=== PATIENT | female | born 1960 | race Caucasian/White ===

== ENCOUNTER → 2016-09-22 | Outpatient (CLI) | payer OTHER ==
[~2016-09-22] VITALS: Ht 162.6 cm; Wt 100.1 kg
[~2016-09-22] MED LIST: ADVAIR 250-501 EACH INH; HYDROCHLOROTH12.5 M2 PO; HYDROCODONE-AP1 EAC6 PO; IBUPROFEN 200200 M1 PO; LEVOTHYROXIN0.125 M1 PO; LISINOPRIL20 MG PO; MEDROLDOSEPACK PO; MOBIC15 MG PO; NEURONTIN 300300 M1 PO; OXYCODONE-ACET1 EACH PO; PERCOCET PO; PROAIR HFA8.5 GM INH; TIZANIDINE HCL4 M1 PO; ZANAFLEX4 MG PO
--- NOTE | ~2016-09-22 | HPC ---
[facility] [place] [address] PAIN MANAGEMENT CONSULTATION Name: EDGARD BECERRA Room #: REG [facility]#: [id number] Admission: 09/22/16 Attend Phys: Andre Parker MD Discharge: Date of : 56 Report #: [id number] THIS REPORT FOR: //name// CC: Andre Stratton MD DATE OF SERVICE: 09/22/2016 FOLLOWUP COMPLAINT: "My surgeon did not think the pain is coming from my back. He thinks it might be in my hip". FOLLOWUP HISTORY: The patient is a 56-year-old female who has been followed in the pain clinic because of pain and discomfort involving her left hip with radiation down into the legs. The patient has a broad-based disk bulge at L4-L5 with moderate facet hypertrophy. She returns today indicating that she had seen her surgeon. He does not feel that the problem is secondary to her back. He feels it might be a problem with her hip. She has returned to the pain clinic for evaluation. PHYSICAL EXAMINATION: Blood pressure 157/64, pulse 91, respiratory rate 18, room air saturations 100%. Height 5 feet 4 inches, weight 100 kilograms. BMI is 37.0. Palpation of the left greater trochanteric area reproduces pain and discomfort. The patient feels that there may be some pain, which is radiating down into her leg in the medial aspect of her leg. She does walk with an antalgic gait. IMPRESSION: 1. Left greater trochanteric bursitis. 2. Chronic low back pain. 3. Migraine headaches. 4. Hypertension. 5. Restless leg syndrome. 6. Acne rosacea. RECOMMENDATIONS: We discussed the risks and benefits of an injection in the left greater trochanteric area for bursitis. Possible complications were discussed. The patient elects to proceed. PROCEDURE NOTE: The patient was placed in the right lateral decubitus position. The left greater trochanteric area was sterilely prepped with a chlorhexidine solution and allowed to dry. Palpation in the area of the left greater trochanter was performed. A skin wheal using 1% lidocaine was injected. A 20-gauge spinal needle was then advanced into the area of the left greater trochanteric area. The patient states that this was quite uncomfortable and reproduces a portion of her pain with some pain radiating down into her leg. [address] [address] PAIN MANAGEMENT CONSULTATION Name: BECERRAEDGARD [facility] [id number] Admission: 09/22/16 Attend Phys: Andre Parker MD Discharge: Date of : 56 Report #: [id number] total of 10 mL of 0.5% bupivacaine and 80 mg Depo-Medrol was injected. The patient tolerated the procedure well. There were no complications. She will follow up in the future as needed. Her pain decreased from 6 to 0 at the time of discharge. She will follow up in the future as needed. We would like to thank you for letting us participate in her care. We hope she continues to improve. <ELECTRONICALLY SIGNED> By: Andre Parker MD 09/24/16 0812 1332 1811 Andre Parker MD /nt
[2016-09-22 08:14] VITALS: BP 157/64
== END ==
LOC: PAIN 07:00
DX: M70.62 Trochanteric bursitis, left hip (principal); G43.909 Migraine, unspecified, not intractable, without status migrainosus; I10 Essential (primary) hypertension; G25.81 Restless legs syndrome; M19.91 Primary osteoarthritis, unspecified site

== ENCOUNTER → 2016-10-27 | Outpatient (CLI) | payer OTHER ==
[~2016-10-27] VITALS: Ht 162.6 cm; Wt 99.5 kg
[~2016-10-27] MED LIST changes: +HYDROCODONE-AP1 EA11 PO
--- NOTE | ~2016-10-27 | HPC ---
[facility] [place] [address] PAIN MANAGEMENT CONSULTATION Name: MARIAMEDGARD L Room #: REG [facility]#: [id number] Admission: 10/27/16 Attend Phys: Andre Parker MD Discharge: Date of : 56 Report #: [id number] THIS REPORT FOR: //name// CC: Andre Stratton MD DATE OF SERVICE: 10/27/2016 DATE OF SERVICE: 10/27/2016 FOLLOWUP HISTORY: The patient is a 56-year-old female, who has been seen in the pain clinic because of pain and discomfort involving her back and left leg. She underwent an injection in the left greater trochanteric area. She noted improvement in this area. She continues to have pain and discomfort involving both hips at this juncture. She rates it as a 6/10, but she is limited by the pain. She is unable to lie on the affected side. She notes that it is exacerbated by working. 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 PHYSICAL EXAMINATION: Blood pressure 138/74, pulse 78, respiratory rate 20, room air saturation 99%. Height 162 cm. Weight 99 kilograms. BMI is 37. Palpation in the area of the left greater trochanteric area does cause some increased pain and discomfort. Palpation in the area of the left greater trochanteric area does reproduce some pain and discomfort. The patient received at least 50% improvement after last the injection. Walks with somewhat antalgic gait. IMPRESSION: 1. Left greater trochanteric bursitis improved after injection. Rotation of the left leg does cause some increased pain and discomfort. The patient is having some pain in the area of the groin. We will consider left femoral/hip injection at the next visit. 2. Chronic low back pain. 3. Chronic migraine headaches. 4. Hypertension. 5. Restless leg syndrome. 6. Acne rosacea. RECOMMENDATION: We will have the patient try a Medrol Dosepak and noted efficacy. We will consider injecting the hip area to note whether or not the hip is the pathology that is causing her pain. Her orthopedic surgeon does not feel that this pain is secondary to the back area, but may be attributed to the hip. We will consider x-ray of the hip. We would like to thank you for letting us participate in her care. We hope [place] [address] PAIN MANAGEMENT CONSULTATION Name: EDGARD BECERRA [facility] [id number] Admission: 10/27/16 Attend Phys: Andre Parker MD Discharge: Date of : 56 Report #: [id number] When the patient returns from precertification, we will consider a hip injection under fluoroscopy. <ELECTRONICALLY SIGNED> By: Andre Parker MD 11/02/16 0824 1433 2230 Andre Parker MD /akiko
[2016-10-27 08:58] VITALS: BP 138/74
== END ==
LOC: PAIN 06:56
DX: M70.62 Trochanteric bursitis, left hip (principal); G89.29 Other chronic pain; G43.909 Migraine, unspecified, not intractable, without status migrainosus; I10 Essential (primary) hypertension

== ENCOUNTER → 2016-11-24 | Outpatient (CLI) | payer OTHER ==
[~2016-11-24] VITALS: Ht 162.6 cm; Wt 99.6 kg
--- NOTE | ~2016-11-24 | HPC ---
[facility] [address] PAIN MANAGEMENT CONSULTATION Name: EDGARD BECERRA Gurvinder Room #: REG [facility]#: [id number] Admission: 11/24/16 Attend Phys: Andre Parker MD Discharge: Date of : 56 Report #: [id number] THIS REPORT FOR: //name// CC: Andre Stratton MD DATE OF SERVICE: 11/24/2016 FOLLOWUP COMPLAINT: The patient is a 56-year-old female who has been followed in the pain clinic because of pain involving the left trochanter and is experiencing pain in the right hip area as well. She has seen her surgeon. He feels that it is not a lumbar problem and it is most likely secondary to hip bursitis. She has returned today for treatment of the left and right hip. She rates her pain as an 8-9. 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 She did get significant improvement after the last injection. She would like to proceed with treatment today. PHYSICAL EXAMINATION: Blood pressure is 158/86, pulse is 80, respiratory rate 20, room air saturation 98%. Height 5 feet 4 inches, weight 99 kilograms. BMI is 37.7. The patient has pain and discomfort in the left greater trochanteric area, which is consistent with trochanteric bursitis. The right side indicates right sided bursitis as well. The patient would like to proceed with treatment of the pain, which caused her to walk in an antalgic fashion. IMPRESSION: 1. Left and right bursitis. Left bursitis improved after injection in the past. 2. Chronic low back pain. 3. Chronic migraine headaches. 4. Hypertension. 5. Restless legs syndrome. 6. Acne rosacea. RECOMMENDATION: We discussed treatment options with the patient. Risks and benefits of a trochanteric injection were discussed. The patient elects to proceed. PROCEDURE NOTE: The patient was placed in the right lateral decubitus position. The right hip/trochanteric area was sterilely prepped with a chlorhexidine solution and allowed to dry. A 25-gauge needle was then advanced into the trochanteric bursa. A total of 10 mL 0.5% bupivacaine and 80 mg Depo-Medrol was injected. The patient tolerated the procedure well. She then was placed in the left lateral decubitus position. The right trochanteric area was palpated and the trochanteric bursa was identified using a 25-gauge needle. The patient [place] [id number] PAIN MANAGEMENT CONSULTATION Name: MARIAMEDGARD Room #: REG [facility] Bernardo#: [id number] Admission: 11/24/16 Attend Phys: Andre Parker MD Discharge: Date of : 56 Report #: [id number] indicated that this did reproduce her pain. A total of 10 mL of 0.5% bupivacaine and 80 mg Depo-Medrol was injected. The patient remained in the pain clinic for an appropriate amount of time. Her hip pain decreased from 9 to 2 at the time of discharge. She will continue with hydrocodone 7.5 mg 1 p.o. t.i.d. p.r.n. for pain relief. We would like to thank you for letting us participate in her care. We hope she continues to improve. <ELECTRONICALLY SIGNED> By: Andre Parker MD 11/25/16 0820 1236 1948 Andre Parker MD /nt
[2016-11-24 08:45] VITALS: BP 158/86
== END ==
LOC: PAIN 06:37
DX: M71.552 Other bursitis, not elsewhere classified, left hip (principal); M71.551 Other bursitis, not elsewhere classified, right hip; G43.809 Other migraine, not intractable, without status migrainosus; I10 Essential (primary) hypertension; G25.81 Restless legs syndrome; L71.8 Other rosacea

== ENCOUNTER → 2016-12-22 | Outpatient (CLI) | payer OTHER ==
[~2016-12-22] VITALS: Ht 162.6 cm; Wt 98.0 kg
[2016-12-22 08:30] VITALS: BP 144/81
== END | disposition home or self-care (01) ==
LOC: PAIN 06:35 → RAD 07:19
DX: M25.552 Pain in left hip (principal); G89.29 Other chronic pain; M71.552 Other bursitis, not elsewhere classified, left hip; M71.551 Other bursitis, not elsewhere classified, right hip; G43.909 Migraine, unspecified, not intractable, without status migrainosus; I10 Essential (primary) hypertension; G25.81 Restless legs syndrome; L71.8 Other rosacea; Z88.8 Allergy status to other drugs, medicaments and biological substances; Z79.899 Other long term (current) drug therapy

== ENCOUNTER → 2017-01-21 | Outpatient (CLI) | payer OTHER ==
[~2017-01-21] VITALS: Ht 162.6 cm; Wt 100.4 kg
[~2017-01-21] MED LIST changes: +HYDROCODON-ACE1 EAC5 PO
--- NOTE | ~2017-01-21 | HPC ---
[facility] [place] [address] PAIN MANAGEMENT CONSULTATION Name: EDGARD BECERRA Room #: REG [facility]#: [id number] Admission: 01/21/17 Attend Phys: Andre Parker MD Discharge: Date of : 56 Report #: [id number] THIS REPORT FOR: //name// CC: Andre Stratton MD DATE OF SERVICE: 01/21/2017 FOLLOWUP COMPLAINT: The pain is in my ITB. FOLLOWUP HISTORY: The patient is a 56-year-old female who has been seen in the pain clinic because of chronic pain involving her greater trochanteric area as well as low back pain. She states that she has been going to the physical therapist. It has been determined that it is her iliotibial band that is a problem at this juncture for most of her pain involving the lateral portion of her thigh. She has been undergoing treatment. She feels that things are improving, but that the pain is really bad when the therapy is provided. PHYSICAL EXAMINATION: Blood pressure 151/81, pulse 63, respiratory rate 20, room air saturation 100%, height 5 feet 4 inches, weight 221 pounds, and BMI is 38. The patient has pain and discomfort in the area of her left greater trochanteric area/iliotibial band area. She would like to have her medications renewed. She still walks with a slight antalgic gait when the pain is there. IMPRESSION: 1. pain in the iliotibial band area. 2. History of left greater trochanteric bursitis. 3. Chronic low back pain. 4. Migraine headaches. 5. Hypertension. 6. Restless leg syndrome. 7. Acne rosacea. RECOMMENDATIONS: We discussed treatment options with the patient. Risks and benefits of medications were reviewed. The patient would like to continue with hydrocodone, gabapentin, Meloxicam, and tizanidine. She feels that these medications all contribute to improving her pain level and lets her engage in activities, she would not be able to without their use. She will call us if she has any problems with her medications. We would like to thank you for letting us to participate in her care. We hope she continues to improve. By: 1615 1725 Andre Parker MD /nt
[2017-01-21 09:24] VITALS: BP 151/81
== END | disposition home or self-care (01) ==
LOC: PAIN 07:14
DX: M79.659 Pain in unspecified thigh (principal); M70.62 Trochanteric bursitis, left hip; M54.5 Low back pain; G43.909 Migraine, unspecified, not intractable, without status migrainosus; I10 Essential (primary) hypertension; G25.81 Restless legs syndrome; L70.9 Acne, unspecified; Z68.38 Body mass index [BMI] 38.0-38.9, adult

== ENCOUNTER → 2017-02-23 | Outpatient (CLI) | payer OTHER ==
[~2017-02-23] VITALS: Ht 162.6 cm; Wt 100.2 kg
[~2017-02-23] MED LIST changes: +tumeric
--- NOTE | ~2017-02-23 | HPC ---
[facility] [place] [address] PAIN MANAGEMENT CONSULTATION Name: EDGARD BECERRA [facility] [id number] Admission: 02/23/17 Attend Phys: Andre Parker MD Discharge: Date of : 56 Report #: [id number] THIS REPORT FOR: //name// CC: Andre Stratton MD DATE OF SERVICE: 02/23/2017 FOLLOWUP COMPLAINT: Still having some pain in the area of the iliotibial band. I was massaged and she gets better, but still is painful. FOLLOWUP HISTORY: The patient is a 57-year-old female who has been seen in the pain clinic because of pain involving the iliotibial band area. She has undergone physical therapy. She had some difficulty getting to the class secondary to having to work. She feels that massaging of the iliotibial band area has been helpful but continues to have pain and discomfort. She feels that her medications are helpful. Hydrocodone 10/325 and meloxicam continue to be beneficial. Tizanidine has been helpful as well. She would like to have her medications renewed. She would also like to consider massage therapy. She rates her pain as a 6-10 to date. Walking and other activities can worsen it. It improves when she lies down and performed stretching exercises which she does. PHYSICAL EXAMINATION: Blood pressure is 159/99, pulse 75, respiratory rate 20, room air O2 saturation is 100%. Height 5 feet 4 inches, weight 220 pounds, BMI is 37. The patient has not fallen since we saw her last. She continues to have pain and discomfort in the area of iliotibial band. Palpation in this area does indicate tender points and some perception of nodules. This is on the left side. IMPRESSION: 1. Pain in the left iliotibial band area, helped with current medication regimen. 2. History of left greater trochanter bursitis. 3. Chronic low back pain. 4. Migraine headaches. 5. Hypertension. 6. Restless legs syndrome. 7. Acne rosacea. RECOMMENDATIONS: We will continue with the patient's use of meloxicam, tizanidine, and hydrocodone p.r.n. for pain. She feels that her medications have been helpful. They enable her to continue to remain gainfully employed. She has not had any complications with their use. Keeps her medications in a controlled environment. [address] [address] PAIN MANAGEMENT CONSULTATION Name: EDGARD BECERRA [facility] [id number] Admission: 02/23/17 Attend Phys: Andre Parker MD Discharge: Date of : 56 Report #: [id number] We would like to thank you for letting us participate in her care. We hope she continues to improve. <ELECTRONICALLY SIGNED> By: Andre Parker MD 02/25/17 0827 1347 0402 Andre Parker MD /akiko
[2017-02-23 12:55] VITALS: BP 159/99
== END ==
LOC: PAIN 07:07
DX: I10 Essential (primary) hypertension (principal); L71.9 Rosacea, unspecified; M54.5 Low back pain; R51 Headache

== ENCOUNTER → 2017-05-25 | Outpatient (CLI) | payer OTHER ==
[~2017-05-25] VITALS: Ht 162.6 cm; Wt 94.3 kg
[~2017-05-25] MED LIST changes: +METHYLPREDNISOLO4 M1 PO
--- NOTE | ~2017-05-25 | HPC ---
[facility] [place] [address] [address] [place] [address] PAIN MANAGEMENT CONSULTATION Name: MARIAMEDGARD Gurvinder Room #: REG [facility]#: [id number] Admission: 05/25/17 Attend Phys: Andre Parker MD Discharge: Date of : 56 Report #: [id number] THIS REPORT FOR: //name// CC: Andre Stratton MD DATE OF SERVICE: 05/25/2017 FOLLOWUP COMPLAINT: "My father has cancer and is in hospice." FOLLOWUP HISTORY: The patient is a 57-year-old female who has been followed in the pain clinic because of chronic pain involving her left leg. She rates her pain as a 4/10. She notes that prolonged standing can exacerbate her discomfort. She is also having some pain and discomfort and tingling in her fingers. The right fingers are involved. She notes that because of her father's condition, pain and discomfort increased at this juncture. PHYSICAL EXAMINATION: Blood pressure 129/60, pulse 70, respiratory rate 16, room air saturation is 96%. Height 5 feet 4 inches, weight 208 pounds, BMI is 35.7. The patient has pain and discomfort with walking and other activities. She is experiencing some pain in her hand numbness and tingling. This may well be carpal tunnel in nature. We will consider injecting this area with local anesthetic and steroid in the future if her pain continues to be problematic. IMPRESSION: 1. Pain in the left leg near the iliotibial band, continues to be helped with exercise and medications. 2. History of greater trochanteric bursitis. 3. Chronic history of low back pain. 4. History of migraine headaches. 5. Hypertension. 6. Restless leg syndrome. 7. Acne rosacea. 8. Possible involvement of her right hand with carpal tunnel symptomatology. RECOMMENDATIONS: We will continue with her current medical regimen. A script for her medications of hydrocodone 10/325 one p.o. q 6 hours, and Medrol and Meloxicam have been written. The patient will also continue with gabapentin 300 mg 1 in the morning, 1 midday and 2 at nighttime, tizanidine 4 mg daily x 2 if needed. We would like to thank you for letting us participate in her care. [place] [id number] PAIN MANAGEMENT CONSULTATION Name: EDGARD BECERRA [facility] [id number] Admission: 05/25/17 Attend Phys: Andre Parker MD Discharge: Date of : 56 Report #: [id number] Hopefully, her father continues to have and remained comfortable while in hospice care. <ELECTRONICALLY SIGNED> By: Andre Parker MD 06/02/17 0945 1319 1836 Andre Parker MD /PMT
[2017-05-25 08:14] VITALS: BP 129/60
== END ==
LOC: PAIN 05-20 15:07
DX: G25.81 Restless legs syndrome (principal); L71.9 Rosacea, unspecified; I10 Essential (primary) hypertension

== ENCOUNTER → 2017-06-22 | Outpatient (CLI) | payer OTHER ==
[~2017-06-22] VITALS: Ht 162.6 cm; Wt 93.3 kg
[~2017-06-22] MED LIST changes: +UNICOMPLEX M TA1 TA1 PO
--- NOTE | ~2017-06-22 | HPC ---
[facility] [address] [address] PAIN MANAGEMENT CONSULTATION Name: MARIAMEDGARD Gurvinder [facility] [id number] Admission: 06/22/17 Attend Phys: Andre Parker MD Discharge: Date of : 56 Report #: [id number] THIS REPORT FOR: //name// CC: Andre Stratton MD FOLLOWUP COMPLAINT: "My father the day after I saw you in the clinic." FOLLOWUP HISTORY: The patient is a 57-year-old female who has been seen in the hospital because of chronic back and leg pain. She was concerned at the last visit her father was in very poor condition. He had been followed by hospice. The patient states that the day after we saw her on her last visit, her father . They have had his ceremony. She continues to have pain and discomfort which is problematic. She noted some pain in her right side. She has followed up with her primary physician. An x-ray showed some calcified area. She cannot remember exactly where this was located. She is having pain and discomfort involving the right lower quadrant, right upper quadrant. This is in the abdominal area. States that it does not change with eating or with food. She thought maybe it was her gallbladder, but her gallbladder has been removed in the past. She is to undergo SONO ultrasound of the area in the near future. She has had in the past problems with diverticulosis. Coughing does not change the character of that pain. ALLERGIES: COMPAZINE, MORPHINE. CURRENT MEDICATIONS: Zanaflex 4 mg daily, Mobic 15 mg, hydrocodone 10/325 q.6 hours p.r.n., gabapentin 300 mg t.i.d., Medrol Dosepak p.r.n., hydrochlorothiazide 12.5 mg, lisinopril 20 mg, Advair 250/50 ProAir 1 puff b.i.d. as needed, Synthroid 0.125 mg. PHYSICAL EXAMINATION: VITAL SIGNS: Blood pressure 129/84, pulse 69, respiratory rate 18, room air saturation 97%, height 5 feet 4 inches, weight 205 pounds, BMI 35. HEENT: Eyes, nonicteric. Eye muscles intact. Head is atraumatic. NECK: No JVD. Good range of motion. The patient does have a cough and some upper respiratory symptoms. When asked to cough, the patient is able to cough. This does not reproduce the pain and discomfort which she is feeling in the right upper quadrant area on the right with the patient lying in the left lateral decubitus position, we were able to palpate an area approximately 2 inches below the rib cage in the area of the transverse colon. Palpation in this area does reproduce the patient's discomfort. Palpation of the ribcage and costal area does not reproduce pain or discomfort. Coughing does not reproduce the discomfort. [address] [address] PAIN MANAGEMENT CONSULTATION Name: BECERRAEDGARD Room #: REG [facility] Bernardo#: [id number] Admission: 06/22/17 Attend Phys: Andre Parker MD Discharge: Date of : 56 Report #: [id number] IMPRESSION: 1. Right upper quadrant pain and discomfort which waxes and wanes and is tender to palpation. 2. History of greater trochanteric bursitis. The patient continues with exercises. She took her Medrol Dosepak as encouraged by her physical therapist that she continues to increase her level of activity. 3. Chronic history of low back pain. 4. History of migraine headaches. 5. Hypertension. 6. Restless legs syndrome. 7. Acne rosacea. 8. History of right hand pain with carpal tunnel symptomatology. RECOMMENDATIONS: We discussed treatment options with the patient. At this juncture, her findings are that of pain and discomfort to deep palpation in the right upper abdominal area. I really could not appreciate ____ or hernia. The patient is going to undergo ultrasound for more definitive information. She states that she was told that there was a calcified area in the right upper quadrant area. I am not exactly sure what this would be. I do not think it is from her previous gallbladder or stone left in this area. May have to do with diverticulitis, but the patient is not symptomatic for this infection. Usually oftentimes more diverticula are noticed on the left descending colon area. A script for Medrol Dosepak and hydrocodone were written. The patient has script for meloxicam. Does not seem like it is a GI problem from use of nonsteroidal anti-inflammatory medication, but the patient's will look into that as a possible cause. We would like to thank you for letting us participate in her care. We hope she continues to improve. <ELECTRONICALLY SIGNED> By: Andre Parker MD 07/15/17 1332 1322 2219 Andre Parker MD /NADIA
[2017-06-22 09:33] VITALS: BP 129/84
== END ==
LOC: PAIN 06:54
DX: G89.29 Other chronic pain (principal); G43.909 Migraine, unspecified, not intractable, without status migrainosus; M79.604 Pain in right leg; R10.11 Right upper quadrant pain; R00.2 Palpitations; I10 Essential (primary) hypertension; G25.81 Restless legs syndrome; L71.8 Other rosacea

== ENCOUNTER → 2017-07-22 | Outpatient (CLI) | payer OTHER ==
[~2017-07-22] VITALS: Ht 162.6 cm; Wt 94.2 kg
--- NOTE | ~2017-07-22 | HPC ---
[facility] [place] [address] PAIN MANAGEMENT CONSULTATION Name: EDGARD BECERRA Gurvinder Room #: [facility] [id number] Admission: 07/22/17 Attend Phys: Andre Parker MD Discharge: Date of : 56 Report #: [id number] THIS REPORT FOR: //name// CC: Andre Stratton MD DATE OF SERVICE: 07/22/2017 FOLLOWUP COMPLAINT: "I had the flu and I am getting better. FOLLOWUP HISTORY: The patient is a 57-year-old female who has been followed in the pain clinic because of chronic pain involving her back and her legs. In the interim, she has had an episode of flu. This has been pretty prevalent in these last few days. She noticed that she had pain and discomfort in the right upper quadrant area. She has undergone a number of tests as well as some ultrasound. Overall, she feels that pain probably was most likely secondary to her viral infection from the flu that has improved. She is getting along a little better at this juncture secondary to her father dying. She has returned to work. She feels that her medications continue to be helpful. She rates her pain as a 6/10 at this juncture. ALLERGIES: COMPAZINE, MORPHINE. CURRENT MEDICATIONS: Zanaflex 4 mg p.o. daily, Mobic 15 mg, hydrocodone 10/325 every 6 hours p.r.n., gabapentin 300 mg t.i.d. The patient has used a Medrol Dosepak in the past, hydrochlorothiazide 12.5 mg, lisinopril 20 mg, Advair 250/50, ProAir 1 puff b.i.d. as needed, Synthroid 0.125 mg. PAIN CLINIC ASSESSMENT 1. History of osteoarthritis in the right lower extremity. 2. History of rheumatoid arthritis not applicable. 3. Height 5 feet 4 inches, weight 207 pounds, BMI is 35. 4. Vital signs: Blood pressure 138/89, pulse 65, respiratory rate 16, room air saturation 97%. 5. Pain intensity 11/20. 6. Fall risk. The patient has not fallen in the last 3 months. She does not need any assistance with walking, is not suffering from dizziness. 7. The patient is not on any blood thinner. 8. History of hypertension. The patient is being appropriately treated for her hypertension. 9. Opioid therapy greater than 6 weeks. The patient has signed a contract on 06/04/2016. RISK ASSESSMENT TOOL 1. [place] [address] PAIN MANAGEMENT CONSULTATION Name: EDGARD BECERRA Room #: REG [facility]#: [id number] Admission: 07/22/17 Attend Phys: Andre Parker MD Discharge: Date of : 56 Report #: [id number] 2. Functional assessment tool in regards to mood, work, sleep, robyn. 3. Recreational drugs. The patient denies use of recreational drugs, or tobacco. The patient has never smoked cigarettes. 4. Alcohol patient drinks alcoholic beverages infrequently. PHYSICAL EXAMINATION: GENERAL: The patient is a well-developed white female in no apparent distress today. Appears stated age, alert and oriented x 3 with fluent speech and affect is appropriate. HEAD, EARS, EYES, NOSE AND THROAT: Atraumatic. Hearing is good. Extraocular eye muscles intact. No nasal complaints. Moist buccal membranes. No adenopathy or JVD. LUNGS: Clear to auscultation. ABDOMEN: The patient states that her abdomen is nontender at this juncture. EXTREMITIES: Lower extremities, continues to have some pain and discomfort in the legs bilaterally. Has some discomfort in the right hand and right shoulders. IMPRESSION: 1. Right upper quadrant pain, which improved after flu-like symptoms. 2. 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 3. Chronic low back pain. 4. History of migraine headaches. 5. Hypertension. 6. Restless legs syndrome. 7. Acne rosacea. 8. Right arm/hand pain with carpal tunnel symptomatology. RECOMMENDATIONS: We discussed treatment options with the patient. Risks and benefits of her current therapy were discussed. We will continue with her current use of hydrocodone 10 mg q.i.d. She will continue with the muscle relaxant. She will call us if she has any problems with her medication. Overall, she feels like she is getting better from the of her father. She will continue with her therapy and call us if she has any concerns. <ELECTRONICALLY SIGNED> By: Andre Parker MD 08/24/17 1421 0918 1655 Andre Parker MD /NADIA
[2017-07-22 08:03] VITALS: BP 138/89
== END ==
LOC: PAIN 06:56
DX: G89.29 Other chronic pain (principal); R10.11 Right upper quadrant pain; M54.5 Low back pain; G43.909 Migraine, unspecified, not intractable, without status migrainosus; I10 Essential (primary) hypertension; G25.81 Restless legs syndrome; L71.9 Rosacea, unspecified; Z88.5 Allergy status to narcotic agent; Z88.8 Allergy status to other drugs, medicaments and biological substances

== ENCOUNTER → 2017-08-19 | Outpatient (CLI) | payer OTHER ==
[~2017-08-19] VITALS: Ht 160 cm; Wt 92.2 kg
[~2017-08-19] MED LIST changes: -UNICOMPLEX M TA1 TA1 PO
--- NOTE | ~2017-08-19 | HPC ---
[facility] [address] [place] [address] PAIN MANAGEMENT CONSULTATION Name: EDGARD BECERRA Room #: REG [facility].#: [id number] Admission: 08/19/17 Attend Phys: Andre Parker MD Discharge: Date of : 56 Report #: [id number] THIS REPORT FOR: //name// CC: Andre Stratton MD DATE OF SERVICE: 08/19/2017 FOLLOWUP COMPLAINT: Here for medication refill. My mother is still in the little better. FOLLOWUP HISTORY: The patient is a 57-year-old female who has been seen in the pain clinic because of chronic pain involving her right upper quadrant as well as pain down in her leg in the area of the iliotibial tract. She also has noticed some pain and discomfort in her right hand. She rates her pain overall as a 4/10. Notes that the pain is exacerbated by walking, lifting, sitting, standing as well as with changes in the weather. She has used the TENS unit as well and found it sometimes helpful. She feels that her current medication of meloxicam, tizanidine, gabapentin and hydrocodone continue to be helpful. She continues to work. Notes that without her medications her pain can be more problematic. She is feeling a little better. Her father around [place] time. Her mother is beginning to become a bit more independent. She feels overall that things are slowly hearing for a new normal. Again, she feels that her medications are helpful. She would like to continue them. She keeps them in a guarded area. She has returned for renewal of her medications. ALLERGIES: COMPAZINE, MORPHINE. MEDICATIONS: Zanaflex 4 mg p.o. daily, Mobic 15 mg, hydrocodone 10/325 q. 6 hours p.r.n., gabapentin 300 mg p.o. t.i.d., the patient continues to use hydrochlorothiazide 12.5 mg, lisinopril 20 mg, Advair 250/50, ProAir 1 puff b.i.d. as needed and Synthroid 0.25 mg. PAIN CLINIC ASSESSMENT: 1. History of osteoarthritis of the right lower extremity 2. History of rheumatoid arthritis, not applicable: 3. Height 5 feet 4 inches, weight 203 pounds, BMI is 36. 4. Vital signs: Blood pressure 134/80, pulse 75, respiratory rate 14, room air saturation 95%. 5. Pain intensity 10. 6. Fall risk. The patient has not fallen in the last 3 months. 7. The patient is not on a blood thinner. 8. History of hypertension and the patient [place] [address] PAIN MANAGEMENT CONSULTATION Name: EDGARD BECERRA Room #: REG [facility] Bernardo#: [id number] Admission: 08/19/17 Attend Phys: Andre Parker MD Discharge: Date of : 56 Report #: [id number] 9. Opioid therapy. The patient has signed a contract with our pain clinic and only gets her medication from one source. 10. Risk tool for opioid low at 0/3. 11. Functional assessment tool 37/70. 12. Recreational drug use, never used recreational drugs. 13. Tobacco, never used tobacco. 14. Alcohol. Denies use of alcohol except on rare occasions: The patient is a well-developed white female, in no apparent distress today. Appears her stated age. She is alert and oriented x 3. Speech is fluent. Affect is appropriate. She seems less emotional within the last visit. There has been a little bit more time since her father PHYSICAL EXAMINATION: HEENT: The patient is normocephalic, atraumatic. Hearing is within normal limits. Extraocular eye muscles intact. Nasal, there were no nasal complaints. Moist buccal membranes. NECK: No adenopathy or JVD. LUNGS: Clear to auscultation. ABDOMEN: Nontender. EXTREMITIES: Lower extremities continue to have some pain and discomfort in the legs bilaterally. The patient has had some discomfort in her right hand and right shoulders. IMPRESSION: 1. Right upper quadrant pain, which improved after resolution of her flu-like symptoms. 2. History of left lower pain down into the iliotibial areas. There is also some discomfort in the area of the greater trochanteric area. 3. Chronic low back pain. 4. History of migraine headaches. 5. Hypertension. 6. Restless leg syndrome. 7. Acne rosacea. 8. Right arm pain with carpal tunnel symptomatology. RECOMMENDATIONS: We will continue with the patient's current use of her medications. She states that she has taken the medication as prescribed. She is aware of the problems with opioids in [facility]. She states that she is keeping her medications in a guarded area. She takes her medications as prescribed. She is not having any medications problems. No significant problems with constipation. No problems with clear thinking. We will renew her medications for tizanidine 4 mg b.i.d., Meloxicam 15 mg daily, [facility] [address] [place] [address] PAIN MANAGEMENT CONSULTATION Name: EDGARD BECERRA Room #: [facility] Chang#: [id number] Admission: 08/19/17 Attend Phys: Andre Parker MD Discharge: Date of : 56 Report #: [id number] gabapentin 300 mg t.i.d. and hydrocodone We would like to thank you for letting us participate in her care. We hope she continues to improve. <ELECTRONICALLY SIGNED> By: Andre Parker MD 09/09/17 0811 1551 1758 Andre Parker MD /PMT
[2017-08-19 07:55] VITALS: BP 134/80
== END ==
LOC: PAIN 06:59
DX: G89.29 Other chronic pain (principal); M54.5 Low back pain; I10 Essential (primary) hypertension; M79.604 Pain in right leg; M79.641 Pain in right hand; F11.90 Opioid use, unspecified, uncomplicated

== ENCOUNTER → 2017-09-16 | Outpatient (CLI) | payer OTHER ==
[~2017-09-16] VITALS: Ht 160 cm; Wt 94.4 kg
--- NOTE | ~2017-09-16 | HPC ---
[facility] [place] [address] [place] [address] PAIN MANAGEMENT CONSULTATION Name: EDGARD BECERRA Gurvinder Room #: REG [facility].#: [id number] Admission: 09/16/17 Attend Phys: Andre Parker MD Discharge: Date of : 56 Report #: [id number] THIS REPORT FOR: //name// CC: Andre Stratton MD DATE OF SERVICE: 09/16/2017 FOLLOWUP COMPLAINT: "Things are going reasonably well and I have come to renew my medication." FOLLOWUP HISTORY: The patient is a 57-year-old female, who has been seen in the Pain Clinic because of chronic pain involving her lower extremities as well as some right shoulder and hip pain. She rates her pain as 10/10 at this juncture. She has noted some changes in the weather that has had some impact on her discomfort. Overall, she is having pain and discomfort in the right shoulder area. Also, she has some pain in her right hip and down into her legs. She has had some pain on the lateral portion of her legs, which is somewhat consistent with bursitis, which she has experienced in the past. The shoulder and her upper arm is similar to that she has experienced in the past. At that time, she underwent an injection in her shoulder area and noted some improvement. Overall, she feels that this might be associated with the weather and changing weather patterns. She would like to continue with her current medications. She has had no complication from their use. She finds that the Meloxicam, trazodone, gabapentin, and hydrocodone continue to be helpful. She continues to be gainfully employed with the use of her medications. ALLERGIES: COMPAZINE, MORPHINE. MEDICATIONS: Zanaflex 4 mg p.o. daily, Mobic 15 mg, hydrocodone 10/325 q. 6 hours p.r.n., gabapentin 300 mg p.o. t.i.d. The patient continues to use hydrochlorothiazide 12.5 mg, lisinopril 20 mg, Advair 250/50, ProAir 1 puff b.i.d. as needed, and Synthroid 0.25 mg. PAIN CLINIC ASSESSMENT: 1. History of osteoarthritis involving the right lower extremity. She has had some discomfort in her upper extremity on the right. 2. History of rheumatoid arthritis is not applicable. 3. Height 5 feet 4 inches, weight is 208 pounds, BMI is 36.9. 4. Vital signs: Blood pressure 135/72, pulse 72, respiratory rate 18, room air saturation 98%. 5. Pain intensity: 10/10. 6. Fall risk: The patient has not fallen in the last 3 months. 7. Blood thinner use: The patient is not on blood thinners. 8. History of hypertension: The patient [place] [address] PAIN MANAGEMENT CONSULTATION Name: PUSHPA BECERRAKP Hollins Room #: REG [facility]#: [id number] Admission: 09/16/17 Attend Phys: Andre Parker MD Discharge: Date of : 56 Report #: [id number] 9. Opioid therapy: The patient has a contract signed with the Pain Clinic regarding use of opioid medications and gets her medication from only one source. 10. Risk assessment tool is 0/8, which is a low value. 11. Functional assessment tool is 37/70, which shows some moderate problems with activities of daily living. 12. Recreational drug use: Denies. 13. Tobacco: Denies use of tobacco. 14. Alcohol use and frequency: The patient denies use of frequent use of alcoholic beverages. PHYSICAL EXAMINATION: GENERAL: The patient is a well-developed, well-nourished, white female. Appears her stated age. She is alert and oriented x 3. Affect is appropriate. Speech is fluent. HEENT: Normocephalic, atraumatic. Extraocular eye muscles intact. Hearing is within normal limits. Conjunctivae are normal. Buccal membranes are moist. NECK: Without adenopathy or JVD. Good range of motion. LUNGS: Clear to auscultation. HEART: Regular rate. ABDOMEN: Nontender. EXTREMITIES: No clubbing, cyanosis or edema. Notes some pain and discomfort in the lateral portion of her legs near the trochanter. Notes some discomfort in her right arm and right shoulder. IMPRESSION: 1. Right upper quadrant pain with some pain in the right shoulder. 2. History of low back pain in the area of the iliotibial areas with history of greater trochanteritis involving her legs. 3. Chronic low back pain. 4. History of migraine headaches. 5. Hypertension. 6. Restless leg syndrome. 7. Acne, rosacea. 8. History of right pain with the arm involving carpal tunnel symptomatology. RECOMMENDATIONS: We discussed treatment options with the patient. At this juncture, we will continue with her current medical regimen. She will continue to take her medications as prescribed. She will call us if she has any problems with her medications. A script for Medrol Dosepak has been written. Hopefully, this would help calm down some of the discomfort she is having in the upper arm area. A script for hydrocodone 10/325 one p.o. q.i.d. as well as gabapentin 300 mg t.i.d. and meloxicam 15 mg b.i.d. with tizanidine 4 mg b.i.d. has been written. The patient will call us if she has any problems with her medications. We have discussed the use of opioid medications. She is aware of the topic of opioid medications in the media. States that she is taking her medication as [facility] [address] [place] [address] PAIN MANAGEMENT CONSULTATION Name: EDGARD BECERRA Room #: REG [facility] Chang#: [id number] Admission: 09/16/17 Attend Phys: Andre Parker MD Discharge: Date of : 56 Report #: [id number] prescribed. She feels that they are quite helpful, feels that they enable her to remain gainfully employed. They do not affect her ability to think or engage in activities. <ELECTRONICALLY SIGNED> By: Andre Parker MD 09/21/17 0851 1622 0418 Andre Parker MD /nt
[2017-09-16 08:31] VITALS: BP 135/72
== END ==
LOC: PAIN 06:46
DX: R10.11 Right upper quadrant pain (principal); M25.511 Pain in right shoulder; M54.5 Low back pain; G89.29 Other chronic pain; G43.909 Migraine, unspecified, not intractable, without status migrainosus; I10 Essential (primary) hypertension; G25.81 Restless legs syndrome; L71.9 Rosacea, unspecified; Z88.5 Allergy status to narcotic agent; Z88.8 Allergy status to other drugs, medicaments and biological substances

== ENCOUNTER → 2017-10-14 | Outpatient (CLI) | payer OTHER ==
[~2017-10-14] VITALS: Ht 162.6 cm; Wt 93.9 kg
--- NOTE | ~2017-10-14 | HPC ---
[facility] [place] [address] PAIN MANAGEMENT CONSULTATION Name: EDGARD BECERRA Gurvinder Room #: REG [facility] Bernardo#: [id number] Admission: 10/14/17 Attend Phys: Andre Parker MD Discharge: Date of : 56 Report #: [id number] THIS REPORT FOR: //name// CC: Andre Stratton MD DATE OF SERVICE: 10/14/2017 FOLLOWUP COMPLAINT: Here for medication renewal. FOLLOWUP HISTORY: The patient is a 57-year-old female who has been followed in the pain clinic because of chronic pain involving her right leg, hip and has some right shoulder pain and discomfort. She rates her pain as an 8/10. She finds that her current medication regimen is helpful and has returned for renewal of her hydrocodone and gabapentin. The patient is a 57-year-old female who has been followed in the pain clinic because of pain and discomfort in her lower extremities. She has had some pain in her right shoulder. She rates her pain today as an 8/10. Notes that the pain somewhat waxes and wanes with the weather. The weather has been fluctuating quite a bit at this juncture. She finds that use of TENS and cold compresses could be helpful. She has pain and discomfort in her right shoulder. She has pain in her right hip as well as some pain in her legs bilaterally. 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 She would like to continue with her medications of naloxone, trazodone, gabapentin, and hydrocodone. She is aware of the conversation in the media regarding use of opioid medications on a chronic basis. She feels that her medications are helpful. They enable her to stay engage in activities of daily living. Makes her ability to stay gainfully employed easier. ALLERGIES: COMPAZINE, MORPHINE. MEDICATIONS: Zanaflex 4 mg p.o. daily, Mobic 15 mg, hydrocodone 10/325 every 6 hours, gabapentin 300 mg t.i.d, the patient continues to use hydrochlorothiazide 12.5 mg, lisinopril 20 mg, Advair 250/50, ProAir 1 puff b.i.d. as needed, Synthroid 0.25 mg. PAIN CLINIC ASSESSMENT: 1. History of osteoarthritis involving the right lower extremity as well as in the right upper arm. 2. Height 5 feet 4 inches, weight 207 pounds, BMI is 35.5. 3. VITAL SIGNS: Blood pressure 160/88, pulse 66, respiratory rate 14, room air saturation 100. 4. Pain intensity 8/10. 5. Fall risk. The patient has not fallen in the last 3 [place] [address] PAIN MANAGEMENT CONSULTATION Name: BECERRAEDGARD Room #: REG [facility] Bernardo#: [id number] Admission: 10/14/17 Attend Phys: Andre Parker MD Discharge: Date of : 56 Report #: [id number] 6. Blood thinners. The patient is not on a blood thinner. 7. History of hypertension. The patient is being treated for hypertension. 8. Opiate therapy greater than 6 weeks. The patient is on an opioid contract with the Pain Clinic and [facility]. 9. Risk assessment tool, risk 0/3 for opioid use. 10. Functional assessment tool , with mild to moderate influence of pain on her activities of daily living. 11. Recreational drug use. Denies use of recreational drugs. 12. Tobacco: The patient has never smoked. 13. Alcohol: The patient drinks 1-2 alcoholic beverages on a social basis. PHYSICAL EXAMINATION: GENERAL: The patient is a well-developed, well-nourished white female. She appears her stated age. She is alert and oriented x 3. Her affect is appropriate. Speech is fluent. HEENT: Normocephalic, atraumatic. Extraocular eye muscles intact. Hearing is within normal limits. Conjunctiva is nonicteric. Buccal membranes are moist. NECK: Without adenopathy or JVD. Good range of motion. LUNGS: Clear to auscultation without rhonchi or rales. HEART: Regular rate. S1, S2. ABDOMEN: Nontender. EXTREMITIES: No clubbing, cyanosis or edema. The patient does have some discomfort in the lateral portion of her legs near the greater trochanteric area. Has some pain and discomfort in her right arm as well as in the right shoulder area with some limitation in movement. IMPRESSION: 1. Right upper quadrant pain and some pain in the right shoulder. 2. History of low back pain in the area of the iliotibial areas with history of greater trochanteric bursitis. 3. Chronic low back pain. 4. History of migraine headaches. 5. Hypertension. 6. Restless leg syndrome. 7. Acne rosacea. 8. History of right arm pain and some carpal tunnel symptomatology. RECOMMENDATIONS: We discussed treatment options with the patient. At this juncture, we will continue with her current regimen of opioid medications. Using hydrocodone 10/325 one p.o. q.i.d. as well as meloxicam 15 mg, gabapentin 300 mg, and Zanaflex 4 mg b.i.d. A script for these medications have been written. The patient will call us if she has any problems with her medications. [address] [place] [address] PAIN MANAGEMENT CONSULTATION Name: EDGARD BECERRA Room #: REG [facility].#: [id number] Admission: 10/14/17 Attend Phys: Andre Parker MD Discharge: Date of : 56 Report #: [id number] We would like to thank you for letting us participate in her care. We hope she continues to improve. <ELECTRONICALLY SIGNED> By: Andre Parker MD 10/21/17901 1723 51 Andre Parker MD /nt
[2017-10-14 08:54] VITALS: BP 160/88
== END ==
LOC: PAIN 08:24
DX: G89.29 Other chronic pain (principal); M54.5 Low back pain; M19.011 Primary osteoarthritis, right shoulder; M25.559 Pain in unspecified hip; F11.90 Opioid use, unspecified, uncomplicated; I10 Essential (primary) hypertension; R10.11 Right upper quadrant pain; G43.909 Migraine, unspecified, not intractable, without status migrainosus; G25.81 Restless legs syndrome; L71.9 Rosacea, unspecified

== ENCOUNTER → 2017-11-11 | Outpatient (CLI) | payer OTHER ==
[~2017-11-11] VITALS: Ht 162.6 cm; Wt 94.8 kg
--- NOTE | ~2017-11-11 | HPC ---
[facility] [place] [address] PAIN MANAGEMENT CONSULTATION Name: EDGARD BECERRA Gurvinder Room #: REG [facility].#: [id number] Admission: 11/11/17 Attend Phys: Andre Parker MD Discharge: Date of : 56 Report #: [id number] THIS REPORT FOR: //name// CC: Andre Stratton DATE OF SERVICE: 11/11/2017 FOLLOWUP COMPLAINT: Here for medication renewal. FOLLOWUP HISTORY: The patient is a 57-year-old female who has been followed in the pain clinic because of chronic pain involving her right leg, hip and also has some right shoulder pain and discomfort. Rates her pain overall at this juncture as a 7/10. She notes that the pain is exacerbated by walking, lifting, standing as well as note some worsening with changes in weather pattern. Use of her medications, TENS and ____ are sometimes helpful. She denies any problems with her medications. No problems with constipation or bowel or bladder dysfunction. She continues to work in the lab. Feels that her medications are not cause any problems. She is clear minded/headed with their use. She would like to continue with her medication and has returned today for refill of her medications. ALLERGIES: COMPAZINE, MORPHINE. CURRENT MEDICATIONS: Zanaflex 4 mg p.o. daily, Mobic 15 mg, hydrocodone 10/325 q.6 hours, gabapentin 300 mg t.i.d. The patient continues to take hydrochlorothiazide 12.5 mg, lisinopril 20 mg, Advil 250/50, ProAir 1 puff b.i.d. as needed, and Synthroid 0.25 mg. PAIN CLINIC ASSESSMENT: 1. History of osteoarthritis involving the right lower extremity as well as some discomfort in her right upper arm. 2. Height 5 feet 4 inches. Weight 209 pounds, BMI is 35.9. 3. VITAL SIGNS: Blood pressure 150/75, respiratory rate is 16, pulse 58, room air saturation 100%. 4. Pain intensity 12/20. 5. Fall risk. The patient has not fallen in the last 3 months. 6. Blood thinner. The patient is not on a blood thinning medication. 7. History of hypertension. The patient is being treated for hypertension. 8. Opioid therapy. The patient is receiving medications from the pain clinic as prescribed by a contract. 9. Functional assessment tool 0/3, low risk. 10. Risk assessment tool 37/70 indicating moderate problems with activities of daily living secondary to the pain. 11. Recreational drug use. The patient denies use of recreational drugs. 12. Tobacco: The patient denies use of tobacco. [address] [address] PAIN MANAGEMENT CONSULTATION Name: EDGARD BECERRA Room #: REG [facility] Bernardo#: [id number] Admission: 11/11/17 Attend Phys: Andre Parker MD Discharge: Date of : 56 Report #: [id number] 13. Alcohol. The patient drinks alcoholic beverages on occasion. PHYSICAL EXAMINATION: GENERAL: The patient is a well-developed, well-nourished white female. She appears her stated age. She is alert and oriented. Her affect is appropriate. Speech is fluent. The patient seems somewhat tired. She just worked last evening and has come to the pain clinic to get her medications. HEENT: Normocephalic, atraumatic. Extraocular eye muscles intact. Hearing is within normal limits. Conjunctivae nonicteric. Mucous membranes are moist. NECK: Without adenopathy or JVD. Good range of motion. LUNGS: Clear to auscultation without rhonchi or rales. HEART: Regular rate. S1, S2. ABDOMEN: Nontender, somewhat protuberant. EXTREMITIES: No clubbing, cyanosis or edema. The patient does have some discomfort in the lateral portion of her legs near the greater trochanteric area. Has some pain and discomfort in her right arm as well as in the right shoulder area with some limitation in movement. IMPRESSION: 1. Right upper quadrant pain and some pain in the right shoulder. 2. History of low back pain in the area of the iliotibial areas and history of greater trochanteric bursitis. 3. Chronic low back pain. 4. History of migraines. 5. Hypertension. 6. Restless leg syndrome. 7. Acne rosacea. 8. History of right arm pain and some carpal tunnel symptomatology. RECOMMENDATIONS: We discussed treatment options with the patient. She feels that her medications continue to be helpful. She would like to continue their use. Keeps her medications in a guarded area. She is aware that opioid medications can be habit-forming and cause addiction as well as can be less effective over a period of time as a result of tolerance. She feels that her medications are working reasonably well and would like to have them renewed. A script for her medications of meloxicam 15 mg 1 p.o. daily, hydrocodone 10/325, 120 tablets, 4 tablets daily; gabapentin 300 mg t.i.d. and tizanidine 4 mg b.i.d. have been written. The patient will call us if she has any problems with her medications. We would like to thank you for letting us participate in her care. We hope she continues to improve. By: [id number] Andre Parker MD /akiko
[2017-11-11 08:19] VITALS: BP 150/75
== END ==
LOC: PAIN 07:18
DX: M25.551 Pain in right hip (principal); G89.29 Other chronic pain; R10.11 Right upper quadrant pain; M25.511 Pain in right shoulder; M54.5 Low back pain; G43.909 Migraine, unspecified, not intractable, without status migrainosus; I10 Essential (primary) hypertension; G25.81 Restless legs syndrome; L71.9 Rosacea, unspecified; Z88.5 Allergy status to narcotic agent; Z88.8 Allergy status to other drugs, medicaments and biological substances

== ENCOUNTER → 2017-12-09 | Outpatient (CLI) | payer OTHER ==
[~2017-12-09] VITALS: Ht 162.6 cm; Wt 96.2 kg
--- NOTE | ~2017-12-09 | HPC ---
[facility] [place] [address] PAIN MANAGEMENT CONSULTATION Name: EDGARD BECERRA Room #: REG [facility] Matt.#: [id number] Admission: 12/09/17 Attend Phys: Andre Parker MD Discharge: Date of : 56 Report #: [id number] THIS REPORT FOR: //name// CC: Andre Stratton MD DATE OF SERVICE: 12/09/2017 FOLLOWUP COMPLAINT: Here for medication renewal. Things are going reasonably well. FOLLOWUP HISTORY: The patient is a 57-year-old female who has been followed in the Pain Clinic because of chronic pain involving her right leg. She has continued to have pain and discomfort in the area of the tensor fascia leen. She feels that overall her medications are helpful. Rates her pain as a 6 on average. It involves her leg and is exacerbated by walking, standing, sitting as well as changes in the weather. Pain is worse on the right hip. She also has some problems with her right shoulder. She continues to use her medications as well as TENS and cold applications to the affected area when needed. She is aware of the possible complications of opioid medications, possibility of less effectiveness of the medication with prolonged use secondary to tolerance. She has a friend who has used CBD oil. Her friend states that she has noted it to be quite beneficial for her and her arthritis. The patient was wondering whether or not this medication would be helpful in her situation. We discussed it, we explained its origins and use. The patient feels that she might want to give this medication a try given that she continues to have chronic pain involving her leg and would like to decrease use of opioid medications as much as possible. ALLERGIES: COMPAZINE, MORPHINE. MEDICATIONS: Zanaflex 4 mg p.o. daily, Mobic 15 mg, hydrocodone 10/325 q. 6 hours, gabapentin 300 mg t.i.d., hydrochlorothiazide 12.5 mg, lisinopril 20 mg, ProAir 1 puff b.i.d. as needed, Synthroid 0.25 mg. PAIN CLINIC ASSESSMENT: 1. History of osteoarthritis involving the right lower extremity as well as some discomfort in her right upper arm. 2. Height 5 feet 4 inches, weight 212 pounds, BMI is 36.4. 3. Vital signs: Blood pressure 156/89, pulse 78, respiratory rate 16, room air saturation 99%. 4. Pain intensity: 6/10 on a daily average. 5. Fall risk: The patient has not fallen in the last 3 months. 6. Blood thinner: The patient is on a blood thinning medication. 7. Hypertension: The patient [place] [address] PAIN MANAGEMENT CONSULTATION Name: EDGARD BECERRA [facility] [id number] Admission: 12/09/17 Attend Phys: Andre Parker MD Discharge: Date of : 56 Report #: [id number] 8. Opioid therapy greater than 6 weeks: The patient is on opioid therapy and receives her medication from once physician in the Pain Clinic. 9. Risk assessment tool: Low risk 0-3 regarding the use of opioids. 10. Functional assessment tool. 11. Drug use recreationally: The patient denies use of recreational drugs. 12. Tobacco: The patient denies use of tobacco. 13. Alcohol: The patient occasionally drinks alcoholic beverages. PHYSICAL EXAMINATION: GENERAL: The patient is a well-developed white female. She is alert and oriented x 3. Slightly obese. She is oriented x 3 and her affect is appropriate. Speech is fluent. HEENT: Normocephalic, atraumatic. Extraocular eye muscles intact. Sclerae nonicteric. Hearing is within normal limits. Conjunctivae nonicteric. Mucous membranes are moist. NECK: Without adenopathy or JVD. Good range of motion. LUNGS: Clear to auscultation without rhonchi or rales. HEART: Regular rate. S1, S2. ABDOMEN: Nontender, somewhat protuberant. EXTREMITIES: No clubbing, cyanosis or edema. The patient has some discomfort in the lateral portion of her legs near the greater trochanteric areas. Palpation in the area of the tensor fascia elen is still sore and uncomfortable. The patient has pain in her right arm and right shoulder with some limitation of its movement. IMPRESSION: 1. Right upper quadrant pain and pain in the right shoulder. 2. History of low back pain in the area of the iliotibial band. 3. History of greater trochanteric bursitis. 4. Chronic low back pain. 5. History of migraines. 6. Hypertension. 7. Restless leg syndrome. 8. Acne rosacea. 9. History of right arm pain with some carpal tunnel symptomatology. RECOMMENDATIONS: We discussed treatment options with the patient. At this juncture, we will continue with her current medications. A script for her medications have been provided. The patient has a friend who has used CBD oil, she is considering use of this medication or of this item. She notes that it has become available. She has been told that it has no active THC. She is aware that it is derived from cannabis plant. She is considering giving it a try. She hopes that it would provide some benefit with helping her with her chronic pain and decrease her use of opioids and other habit forming medications. We would like to thank you for letting us participate in her care. A script for meloxicam, hydrocodone, gabapentin, tizanidine have been written. [facility] [address] [place] [address] PAIN MANAGEMENT CONSULTATION Name: EDGARD BECERRA [facility] #: [facility] [id number] Admission: 12/09/17 Attend Phys: Andre Parker MD Discharge: Date of : 56 Report #: [id number] The patient will call us if she has any problems with her medications. We would like to thank you for letting us participate in her care. We hope she continues to improve. By: [id number] Andre Parker MD /nt
[2017-12-09 08:15] VITALS: BP 156/89
== END ==
LOC: PAIN 06:52
DX: M54.5 Low back pain (principal); I10 Essential (primary) hypertension; G25.81 Restless legs syndrome; G89.29 Other chronic pain; R10.11 Right upper quadrant pain

== ENCOUNTER → 2018-01-06 | Outpatient (CLI) | payer OTHER ==
[~2018-01-06] VITALS: Ht 162.6 cm; Wt 97.1 kg
--- NOTE | ~2018-01-06 | HPC ---
[facility] [address] [place] [address] PAIN MANAGEMENT CONSULTATION Name: EDGARD BECERRA Room #: [facility] [id number] Admission: 01/06/18 Attend Phys: Andre Parker MD Discharge: Date of : 56 Report #: [id number] THIS REPORT FOR: //name// CC: Andre Stratton DATE OF SERVICE: 01/06/2018 FOLLOWUP COMPLAINT: Things are going reasonably well. Life can throw you for loop. FOLLOWUP HISTORY: The patient is a 57-year-old female who has been followed in the pain clinic because of pain and discomfort. Continues to be problematic in her right leg. Feels that her medications are helpful. Rates her pain as 8/10 at this juncture. She has considered CBD oil. She is not sure whether or not she wants to take this medication given that it is not well regulated at this juncture. Notes that she continues to have pain and discomfort involving her leg and notes some discomfort with walking and standing. Continues to have some problem with her right shoulder. She feels that the Zanaflex, Mobic and hydrocodone are helpful. She would like to have these medications renewed. She states that she keeps her medications in a guarded area. She is aware of the information regarding use of opioid medications available in the media. Feels that her medications are helpful. These enable her to continue to remain gainfully employed and to work with less of a chronic debilitating discomfort. ALLERGIES: COMPAZINE, MORPHINE. CURRENT MEDICATIONS: Zanaflex 4 mg p.o., Mobic 15 mg, hydrocodone 10/325 q.6 hours., gabapentin 300 mg t.i.d., hydrochlorothiazide 12.5 mg, lisinopril 20 mg, ProAir 1 puff b.i.d. as needed p.r.n., Synthroid 0.25 mg. PAIN CLINIC ASSESSMENT: 1. History of osteoarthritis involving her right lower extremity as well as some discomfort in the right upper arm. 2. Height 5 feet 4 inches, weight 214 pounds, BMI is 36.7. 3. Vital signs: Blood pressure 165/80, pulse 66, respiratory rate 14, room air saturation is 100%. 4. Pain intensity 01/20. 5. Fall risk. The patient has not fallen in the last 3 months. 6. Blood thinner. The patient is not on a blood thinning medication. 7. History of hypertension. The patient is being treated for hypertension. 8. Opioid medications greater than 6 weeks. The patient is receiving her medication from the pain clinic. 9. Risk assessment tool, low risk- use of opioid medication. 10. Functional assessment tool 37/70. 11. Recreational drug use. The patient denies [place] [address] PAIN MANAGEMENT CONSULTATION Name: EDGARD BECERRA Gurvinder Room #: [facility] [id number] Admission: 01/06/18 Attend Phys: Andre Parker MD Discharge: Date of : 56 Report #: [id number] 12. Tobacco: The patient has never smoked. 13. Alcohol. The patient occasionally uses alcoholic beverages. PHYSICAL EXAMINATION: GENERAL: The patient is a well-developed, well-nourished white female. She appears her stated age. She is alert and oriented x 3. Slightly obese. Her speech is fluent. HEENT: Normocephalic, atraumatic. Extraocular eye muscles intact. Sclerae nonicteric. Hearing is within normal limits. Mucous membranes are moist. NECK: Without adenopathy or JVD. Good range of motion. LUNGS: Clear to auscultation without rhonchi or rales. HEART: Regular rate. S1, S2. ABDOMEN: Nontender, somewhat protuberant. EXTREMITIES: No clubbing, cyanosis or edema. The patient has some discomfort in the lateral portion of her leg on the greater trochanteric side. Also, has some pain in the area of the tensor fascia elen. Has some pain and discomfort involving her right shoulder with some limitation in his movement because of this pain. IMPRESSION: 1. Right upper quadrant pain and pain in the right shoulder. 2. History of low back pain in the area of the iliotibial band. 3. History of greater trochanteric bursitis. 4. Chronic low back pain. 5. History of migraines. 6. History of hypertension. 7. Restless leg syndrome. 8. Acne rosacea. 9. History of right arm pain with some carpal tunnel symptomatology. RECOMMENDATIONS: We discussed treatment options with the patient. We will continue with her current medication regimen. She has considered the use of CBD oil. She is not sure where she stands at this level. She thinks that she may try it in the future when it is regulated from a standardized pharmacy. She overall has had no problems. Feels that her medications, Meloxicam, hydrocodone, gabapentin, tizanidine are helpful and would like to have them renewed. A script for these medications has been provided to the patient. She will follow up in the near future. We would like to thank you for letting us participate in her care. We hope she continues to improve. <ELECTRONICALLY SIGNED> By: Andre Parker MD 01/06/18 [id number] MD BRANDON Nichols
[2018-01-06 08:01] VITALS: BP 165/81
== END ==
LOC: PAIN 06:29
DX: M25.511 Pain in right shoulder (principal); M54.5 Low back pain; G89.29 Other chronic pain; I10 Essential (primary) hypertension; L71.9 Rosacea, unspecified; R10.11 Right upper quadrant pain; Z79.899 Other long term (current) drug therapy

== ENCOUNTER → 2018-02-03 | Outpatient (CLI) | payer OTHER ==
[~2018-02-03] VITALS: Ht 162.6 cm; Wt 93.9 kg
[~2018-02-03] MED LIST changes: +UNICOMPLEX M TA1 TA1 PO
--- NOTE | ~2018-02-03 | HPC ---
[facility] [place] [address] [place] [address] PAIN MANAGEMENT CONSULTATION Name: EDGARD BECERRA [facility] [id number] Admission: 02/03/18 Attend Phys: Andre Parker MD Discharge: Date of : 56 Report #: [id number] THIS REPORT FOR: //name// CC: Andre Stratton DATE OF SERVICE: 02/03/2018 PRIMARY CARE PHYSICIAN: Vida Stratton MD FOLLOWUP COMPLAINT: Here for medication renewal, things are going reasonably well. FOLLOWUP HISTORY: The patient is a 57-year-old female who has been followed in the Pain Clinic because of continued problems and pain in the right leg. She feels that things are going reasonably well. The weather has changed. Noted some worsening of her pain in this changing climate. Overall, things are going reasonably well. Has pain in her legs, right shoulder and hip. Rates it as an 8/10. Notes that pain can be exacerbated with walking, lifting, standing and changes in the weather she has been experiencing. Continues to use her TENS unit. Placing code on the affected area is helpful as well. Feels that her medications are working reasonably well and would like to have the gabapentin and hydrocodone medication renewed. The patient had a Medrol Dosepak. We had given to her in about September. It was felt that the pain level increased significantly. She used a Medrol Dosepak noticed benefit from that. ALLERGIES: COMPAZINE, MORPHINE. CURRET MEDICATIONS: Zanaflex 4 mg p.o., Mobic 15 mg, hydrocodone 10/325 q.6h., gabapentin 300 mg t.i.d., hydrochlorothiazide 12.5, lisinopril 20, ProAir 1 puff b.i.d. p.r.n., Synthroid 0.25 mg. PAIN CLINIC ASSESSMENT: 1. The patient has a history of osteoarthritis involving her right lower extremity as well as some discomfort in the right upper arm. 2. Height 5 feet 4 inches, weight 207 pounds, BMI 35.5, pulse 71, respiratory rate 14. 3. Pain clinic intensity 01/20. 4. Fall risk. The patient has not fallen in the last 3 months. 5. Blood thinner. The patient is not on a blood thinning medication. 6. History of hypertension. The patient is being treated for hypertension. 7. Opioid greater than 6 weeks. The patient is receiving medications from the Pain Clinic. 8. Risk assessment tool, low risk with use of opioid medication. 9. Functional assessment tool 37/70. 10. Recreational drug use. The patient denies use of recreational drugs. [address] [address] PAIN MANAGEMENT CONSULTATION Name: MARIAMEDGARD [facility] #: [facility] [id number] Admission: 02/03/18 Attend Phys: Andre Parker MD Discharge: Date of : 56 Report #: [id number] 11. Tobacco: The patient has never smoked. 12. Alcohol: The patient occasionally uses alcoholic beverages. PHYSICAL EXAMINATION: GENERAL: The patient is a well-developed, well-nourished white female. Appears her stated age. She is alert and oriented x 3. Slightly obese. Her speech is fluent. HEENT: Normocephalic, atraumatic. Extraocular eye muscles intact. Sclerae nonicteric. Mucous membranes are moist. NECK: Without adenopathy or JVD. Good range of motion. LUNGS: Clear to auscultation without rhonchi or rales. HEART: Regular rate. S1, S2. ABDOMEN: Nontender, somewhat protuberant. EXTREMITIES: No clubbing, cyanosis or edema. The patient without significant scoliosis, kyphosis or lordosis. Has pain and discomfort in the lateral portion of her leg. Has discomfort in the area of the tensor fascia elen. Has some pain and discomfort involving her right shoulder with limitation in movement. IMPRESSION: 1. Right upper quadrant pain and pain in the right shoulder. 2. History of low back pain in the area of the iliotibial band. 3. History of greater trochanteric bursitis. 4. Chronic low back pain. 5. History of migraines. 6. History of hypertension. 7. Restless legs syndrome. 8. Acne rosacea. 9. History of right arm and carpal tunnel symptomatology. RECOMMENDATIONS: We discussed treatment options with the patient. We will continue with her current medical management. Risks and benefits of opioid medication have been discussed with the patient. She is aware of the possible complications, which could include dependency. She is aware that possibility of less effective affect with the medication secondary to developing tolerance. We would like to thank you for letting us participate in her care. She will call us if she has any concerns. By: [id number] Andre Parker MD /NADIA
[2018-02-03 07:55] VITALS: BP 138/80
== END ==
LOC: PAIN 06:57
DX: M54.5 Low back pain (principal); M25.511 Pain in right shoulder; R10.11 Right upper quadrant pain; G89.29 Other chronic pain; L71.9 Rosacea, unspecified; I10 Essential (primary) hypertension; G43.909 Migraine, unspecified, not intractable, without status migrainosus; Z79.899 Other long term (current) drug therapy

== ENCOUNTER → 2018-03-03 | Outpatient (CLI) | payer OTHER ==
[~2018-03-03] VITALS: Ht 162.6 cm; Wt 95.7 kg
[2018-03-03 08:21] VITALS: BP 129/81
== END ==
LOC: PAIN 06:54
DX: M17.11 Unilateral primary osteoarthritis, right knee (principal); M25.552 Pain in left hip; M25.511 Pain in right shoulder; G89.29 Other chronic pain; Z79.899 Other long term (current) drug therapy

== ENCOUNTER → 2018-03-31 | Outpatient (CLI) | payer OTHER ==
[~2018-03-31] VITALS: Ht 162.6 cm; Wt 95.7 kg
--- NOTE | ~2018-03-31 | HPC ---
[facility] [place] [address] PAIN MANAGEMENT CONSULTATION Name: EDGARD BECERRA Room #: REG [facility].#: [id number] Admission: 03/31/18 Attend Phys: Andre Parker MD Discharge: Date of : 56 Report #: [id number] THIS REPORT FOR: //name// CC: Andre Stratton MD DATE OF SERVICE: 03/31/2018 FOLLOWUP COMPLAINT: Renewal of medications. Things are going okay. FOLLOWUP HISTORY: The patient is a 58-year-old female who has been followed in the pain clinic because of chronic pain involving her shoulders, low back, and hips. She feels that her medications are helpful, enable her to stay gainfully employed. Not have any problems with the medications as from mental and point of clarity. She finds that the medications are helpful. 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 We would like to continue with the medications. She continues to exercise and stretch. We have discussed the problems with opioid medications. Discussed that 72,000 people last year as a result of opioid use. She keeps her medications in a guarded area. Feels that the medications are useful. ALLERGIES: COMPAZINE AND MORPHINE. CURRENT MEDICATIONS: Zanaflex 4 mg, Mobic 15 mg, hydrocodone 10/325 one p.o. q.4-6 hours, gabapentin 300 mg 1 p.o. t.i.d., hydrochlorothiazide 12.5 mg, lisinopril 20 mg, ProAir 1 puff b.i.d. p.r.n., and Synthroid 0.25 mg. PAIN CLINIC ASSESSMENT/PQRS: 1. History of osteoarthritis involving her right lower extremity as well as some in the right upper extremity. The patient is not being treated for rheumatoid arthritis. 2. Height 5 feet 4 inches, weight 211 pounds, BMI 36.2. 3. Vital signs: Blood pressure 142/66, pulse 75, respiratory rate 16, room air saturation is 95%. 4. Pain intensity 01/20. 5. Fall risk. The patient has not fallen in the last 3 months. 6. Blood thinner. The patient is not on a blood thinning medication. 7. Hypertension. The patient is being treated for hypertension. 8. Opiate therapy. The patient gets her medication from 1 source, pain clinic. 9. Risk assessment tool, 0/3 low risk for opioid use. 10. Functional assessment tool, 37/70. 11. Recreational drug use, the patient denies. 12. Tobacco, the patient denies. 13. Alcoholic beverages, the patient drinks alcoholic beverage on holidays. [facility] [address] [place] [address] PAIN MANAGEMENT CONSULTATION Name: PUSHPA BECERRAKP Hollins Room #: REG [facility] Bernardo#: [id number] Admission: 03/31/18 Attend Phys: Andre Parker MD Discharge: Date of : 56 Report #: [id number] PHYSICAL EXAMINATION: GENERAL: The patient is a well-developed, well-nourished white female. Appears her stated age. She is alert and oriented x 3. Her affect is appropriate. Speech is fluent. HEENT: Normocephalic, atraumatic. Extraocular muscles intact. Sclerae nonicteric. Mucous membranes are moist. NECK: Without adenopathy or JVD. Good range of motion. LUNGS: Clear to auscultation without rhonchi or rales. HEART: Regular rate. S1, S2. ABDOMEN: Nontender, somewhat protuberant. Bowel sounds present. EXTREMITIES: Upper extremities without clubbing, cyanosis, or edema. The patient without significant scoliosis, kyphosis, or lordosis. The patient has pain and discomfort radiates down the lateral portion of her leg in the area of the tensor fascia elen. The patient also has some pain and discomfort in the right shoulder with limits its motion. IMPRESSION: 1. Right leg pain and pain in the right hip. 2. History of low back pain in the area of the iliotibial band. 3. History of greater trochanter bursitis. 4. Low back pain. 5. History of migraines. 6. History of hypertension. 7. Restless leg syndrome. 8. Acne rosacea. 9. Carpal tunnel syndrome on the right. RECOMMENDATIONS: The patient feels that her medications overall are working reasonably well. They just enable her to be more mobile. She is able to stand on her feet for longer period of time. She is able to get more accomplished with less pain. States that she is not having any problems with mentation. She does work in the laboratory setting. Again, we have discussed the problems with opioid medications and the possible complications of addiction as well as less effect secondary to tolerance. The patient overall feels things are going reasonably well and would like to continue with her medications. A script for gabapentin, hydrocodone 10/325, and Zanaflex have been written. The patient has been compliant over the entirety of her time with the pain clinic. We will provide the patient with 2 months of medication. She will call us if she has any problems. We would like to thank you for letting us participate in her care. We hope she continues to improve. By: 0930 [id number] Andre Parker MD /NAIDA
[2018-03-31 08:02] VITALS: BP 142/66
== END ==
LOC: PAIN 06:45
DX: M79.604 Pain in right leg (principal); M25.551 Pain in right hip; M54.5 Low back pain; I10 Essential (primary) hypertension; G56.01 Carpal tunnel syndrome, right upper limb; G25.81 Restless legs syndrome; L71.9 Rosacea, unspecified; Z86.69 Personal history of other diseases of the nervous system and sense organs; Z79.899 Other long term (current) drug therapy

== ENCOUNTER → 2018-05-31 | Outpatient (CLI) | payer OTHER ==
[~2018-05-31] VITALS: Ht 162.6 cm; Wt 95.0 kg
--- NOTE | ~2018-05-31 | HPC ---
[facility] [place] [address] PAIN MANAGEMENT CONSULTATION Name: MARIAMEDGARD L [facility] [id number] Admission: 05/31/18 Attend Phys: Andre Parker MD Discharge: Date of : 56 Report #: [id number] THIS REPORT FOR: //name// CC: Andre Stratton DATE OF SERVICE: 05/31/2018 FOLLOWUP COMPLAINT: "Here for medications. I am having some catching sensation in my neck was turned to the left." HISTORY: The patient is a 58-year-old female who has been followed in the pain clinic for sometimes because of chronic pain involving her shoulders, low back and hips. She has some problem had problems with her neck in the past. She states that at this juncture, she is having more difficulty when she turns her head to the left side. Sometimes it feels as though it gets caught. This problem is most problematic when she wakes up in the morning and prior to getting started during the course of day. It is less problematic at that juncture. He feels that her neck when she turns it too much to the left, can be somewhat spasmodic. As you may recall, she had surgery in 2002. She does not feel that there is a significant grinding factor to it. She describes it as may be a possibility of scar tissue. She declines opportunity to see a physical therapist. Feels that an x-ray might be helpful in discerning what is going on. This has been more problematic over the last 3-4 months. ALLERGIES: COMPAZINE, MORPHINE. MEDICATIONS: Zanaflex 4 mg, Mobic 15 mg, hydrocodone 10/325 one p.o. 4-6 hours, gabapentin 300 mg 1 p.o. t.i.d., hydrochlorothiazide 12.5 mg, lisinopril 20 mg, ProAir 1 puff b.i.d. p.r.n., Synthroid 0.25 mg. PAIN CLINIC ASSESSMENT/PQRS: 1. History of osteoarthritis. The patient is having some arthritic changes in her right lower extremity and some in her right upper extremity. She has not been treated for rheumatoid arthritis. Height 5 feet 4 inches, weight 209 pounds, BMI is 35.9. 2. Vital Signs: Blood pressure 161/65, respiratory rate 20, room air saturation 100%. 3. Pain intensity 8/10. 4. Fall risk. The patient has not fallen in the last 3 months. 5. Blood thinner. The patient is not on a blood thinning medication. 6. Hypertension. The patient is being treated for hypertension. 7. Opioid greater than 6 weeks. The patient receives her medications from one source, the Pain Clinic. 8. Risk assessment tool, low risk for opioid use. 9. Functional assessment, 37/70. [place] [address] PAIN MANAGEMENT CONSULTATION Name: EDGARD BECERRA Gurvinder Room #: REG [facility]#: [id number] Admission: 05/31/18 Attend Phys: Andre Parker MD Discharge: Date of : 56 Report #: [id number] 10. Recreational drug use. The patient denies use of recreational drugs. 11. Tobacco: The patient denies use of tobacco. 12. Alcohol: The patient denies frequent use of alcoholic beverages, but does drink on occasion. PHYSICAL EXAMINATION: GENERAL: The patient is a well-developed, well-nourished white female. Appears her stated age. She is alert and oriented x 3. Affect is appropriate. Speech is fluent. HEENT: Normocephalic, atraumatic. Extraocular eye muscles intact. Sclerae nonicteric. Mucous membranes are moist. NECK: Without adenopathy or JVD. The patient is able to move her neck to about 90 degrees without significant problems right to the same degree. Notes that sometimes when she gets up in the morning notes there is a limitation in her ability to move it to the right and that it sometimes will somewhat recoil to the other side. LUNGS: Clear to auscultation without rhonchi or rales. HEART: Regular rate. S1, S2. ABDOMEN: Nontender, protuberant. Bowel sounds present. EXTREMITIES: Upper extremities without significant clubbing, cyanosis or edema. The patient has continued to have some pain and discomfort that radiates down the lateral portion of her legs in the area of the tensor fascia elen on the left side. The patient also has some discomfort in her right shoulder with limited motion. IMPRESSION: 1. Chronic right leg pain as well as right hip pain. 2. History of low back pain in the area of the iliotibial band. 3. History of greater trochanteric bursitis. 4. Chronic low back pain. 5. History of migraines. 6. History of hypertension. 7. Restless leg syndrome. 8. Acne rosacea. 9. Carpal tunnel syndrome. 10. History of cervical intervention in 2002 and the patient notes some limitation in her neck movement in the morning when she gets up. I am not sure whether or not her pillow that she has anything to do with it or not. Sometimes last up to an hour the amount of discomfort that she has. She would like to have an x-ray of her neck to see whether or not something pathologic is ongoing at this juncture. RECOMMENDATIONS: I think it would be reasonable to have imaging of her neck. Given that she has had surgery before. She will follow up with her primary, who will order the x-ray. We would like to thank you for letting us participate in her care. A script for her medications of gabapentin 300 mg 1 p.o. t.i.d., [facility] [address] [place] [address] PAIN MANAGEMENT CONSULTATION Name: MARIAMEDGARD [id number] Admission: 05/31/18 Attend Phys: Andre Parker MD Discharge: Date of : 56 Report #: [id number] tizanidine 4 mg b.i.d., hydrocodone 10/325, 130 tablets were provided. The patient will also be given a Medrol Dosepak, which she will take it should her pain become significantly problematic. We would like to thank you for letting us participate in her care. We hope she continues to improve. By: [id number] Andre Parker MD /nt
[2018-05-31 08:45] VITALS: BP 161/80
== END ==
LOC: PAIN 06:55
DX: M19.90 Unspecified osteoarthritis, unspecified site (principal); I10 Essential (primary) hypertension; F11.20 Opioid dependence, uncomplicated; Z91.81 History of falling; Z79.899 Other long term (current) drug therapy

== ENCOUNTER → 2018-06-28 | Outpatient (CLI) | payer OTHER ==
[~2018-06-28] VITALS: Ht 162.6 cm; Wt 95.7 kg
--- NOTE | ~2018-06-28 | HPC ---
[facility] [address] [place] [address] PAIN MANAGEMENT CONSULTATION Name: EDGARD BECERRA Gurvinder Room #: REG [facility]#: [id number] Admission: 06/28/18 Attend Phys: Andre Parker MD Discharge: Date of : 56 Report #: [id number] THIS REPORT FOR: //name// [facility] DATE OF SERVICE: 06/28/2018 FOLLOWUP COMPLAINT: Here for medications and things are going okay. HISTORY: The patient is a 58-year-old female who has been followed in the pain clinic. As you recall, she has some areas of discomfort, which involve her shoulder, low back and hips. She continues to have some pain and discomfort involving her left calf. Also, has pain in her left shoulder. Between ____ she rates her pain as a 9/10. The weather has changed. It is significantly cold outside in the 20s. It is moist and has recently snow. The patient notes that the weather has an impact upon her condition today. She feels that her medications are working reasonably well and would like to continue with their use. She has taken the medication as prescribed. Keeps her medications in a guarded area. ALLERGIES: COMPAZINE, MORPHINE. CURRENT MEDICATIONS: Zanaflex 4 mg, Mobic 15 mg, hydrocodone 10/325 one p.o. every 4-6 hours, gabapentin 300 mg 1 p.o. t.i.d., hydrochlorothiazide 12.5 mg, lisinopril 20 mg, ProAir 1 puff b.i.d., Synthroid 0.25 mcg. PAIN CLINIC ASSESSMENT/PQRS: 1. History of osteoarthritis. The patient is experiencing some arthritic changes in her right lower extremity and in the right upper extremity. She has not been treated for rheumatoid arthritis. 2. Height 5 feet 4 inches, weight 211 pounds, BMI is 36.2. 3. Vital signs: Blood pressure 151/91, pulse 67, respiratory rate 16, room air saturation 99%. 4. Pain intensity 02/20. 5. Fall risk. The patient has not fallen in the last 3 months. 6. Blood thinner. The patient is not on a blood thinning medication. 7. Hypertension. The patient is being treated for hypertension. 8. Opioid therapy. The patient is receiving opioid medications from one source, the pain clinic. 9. Risk assessment tool 0/3 low for opioid use. 10. Functional assessment tool 37/70. 11. Drug use recreational, the patient has not used drugs for recreation. 12. Tobacco: The patient has never smoked. 13. Alcohol: The patient drinks alcoholic beverages on occasion. [address] [address] PAIN MANAGEMENT CONSULTATION Name: MARIAMEDGARD L [facility] [id number] Admission: 06/28/18 Attend Phys: Andre Parker MD Discharge: Date of : 56 Report #: [id number] PHYSICAL EXAMINATION: GENERAL: The patient is a well-developed, well-nourished white female. Somewhat obese. She is alert and oriented. Speech is fluent. HEAD, EYES, EARS, NOSE, AND THROAT: Normocephalic, atraumatic. Extraocular eye muscles intact. Sclerae nonicteric. Mucous membranes are moist. NECK: Without adenopathy or JVD. The patient able to move her neck 90 degrees without significant problems as well as same degree on the right. Has some pain and discomfort in the left shoulder area today. LUNGS: Clear to auscultation without rhonchi or rales. HEART: Regular rate. S1, S2. ABDOMEN: Nontender protuberant. Bowel sounds present. EXTREMITIES: Upper extremity muscle strains without significant clubbing, cyanosis or edema. Notes some pain and discomfort in the left shoulder. She has some pain and discomfort down into the left calf and left leg. There is some tenderness in the area of the tensor fascia elen on the left. IMPRESSION: 1. Chronic right leg pain as well as right hip pain. 2. History of iliotibial band discomfort with pain in the left leg. 3. History of greater trochanteric bursitis. 4. Chronic low back pain. 5. History of migraines. 6. History of hypertension. 7. Restless legs syndrome. 8. Acne rosacea. 9. Carpal tunnel syndrome. 10. History of cervical intervention in 2002, with some limitation in neck movement as a result. RECOMMENDATIONS: We discussed treatment options with the patient. Overall, the patient feels like things are going reasonably well. We will rewrite her medications. A script for 2 months has been provided. The patient will call us if she has any concerns. A script for her medications of gabapentin 300 mg 1 p.o. t.i.d., tizanidine 4 mg b.i.d., hydrocodone 10/325, 130 tablets have been provided. The patient will call us if she has any concerns. We would like to thank you for letting us to participate in her care. We hope she continues to improve. By: [id number] Andre Parker MD /NADIA
[2018-06-28 08:10] VITALS: BP 151/91
--- NOTE | 2018-06-28 08:17 | NUR ---
Pain Clinic Assessment: 1. History of Osteoarthritis: Right Lower Extremity History of Rheumatoid Arthritis: Not Applicable 2. Height: 5 ft. 4 in. 162.6 cm. Weight: 211.0 lb. oz. 95.709 kg. Patient's BMI: 36.2 3. Vital Signs: BP: 151/91 Pulse: 67 Resp: 16 Temp: 02 Sat: 99 ECG Mon: 4. Pain Intensity: 9 5. Fall Risk: Dizziness: N Needs help standing or walking: N Fallen in the last 3 months: N Fall risk comments: 6. Patient on Blood Thinner: None 7. History of Hypertension: Y 8. Opioid Therapy greater than 6 weeks: Y Opiate Contract Signed: 06/04/16 9. Risk Assessment Tool Provided: LOW RISK 0/3 10. Functional Assessment Tool: 11. Recreational Drug Use: Never Drug Type: Tobacco Use: Never Smoker Tobacco Type: Amount or Packs/day: How Many Years: Alcohol Use: Yes Frequency: Special Occasions Quant:
== END ==
LOC: PAIN 07:07
DX: M54.5 Low back pain (principal); M25.551 Pain in right hip; M70.61 Trochanteric bursitis, right hip; G25.81 Restless legs syndrome; G56.00 Carpal tunnel syndrome, unspecified upper limb; L71.9 Rosacea, unspecified; I10 Essential (primary) hypertension; G43.909 Migraine, unspecified, not intractable, without status migrainosus; Z79.899 Other long term (current) drug therapy

== ENCOUNTER → 2018-09-01 | Outpatient (CLI) | payer OTHER ==
[~2018-09-01] VITALS: Ht 162.6 cm; Wt 95.8 kg
[2018-09-01 08:12] VITALS: BP 140/83
--- NOTE | 2018-09-01 08:28 | NUR ---
Pain Clinic Assessment: 1. History of Osteoarthritis: Right Lower Extremity History of Rheumatoid Arthritis: Not Applicable 2. Height: 5 ft. 4 in. 162.6 cm. Weight: 211.2 lb. oz. 95.800 kg. Patient's BMI: 36.2 3. Vital Signs: BP: 140/83 Pulse: 69 Resp: 16 Temp: 02 Sat: 100 ECG Mon: 4. Pain Intensity: 10 5. Fall Risk: Dizziness: N Needs help standing or walking: N Fallen in the last 3 months: N Fall risk comments: 6. Patient on Blood Thinner: None 7. History of Hypertension: Y 8. Opioid Therapy greater than 6 weeks: Y Opiate Contract Signed: 06/04/16 9. Risk Assessment Tool Provided: LOW RISK 0/3 10. Functional Assessment Tool: 11. Recreational Drug Use: Never Drug Type: Tobacco Use: Never Smoker Tobacco Type: Amount or Packs/day: How Many Years: Alcohol Use: Yes Frequency: Special Occasions Quant:
--- NOTE | 2018-09-06 08:28 | HPC ---
[facility] [address] [place] [address] PAIN MANAGEMENT CONSULTATION Name: EDGARD BECERRA [facility] [id number] Admission: 09/01/18 ������������������ Attend Phys: Andre Parker MD Discharge: ������������������ Date of : 56 Report #: [id number] THIS REPORT FOR: //name// CC: Andre Stratton MD DATE OF SERVICE: 09/01/2018 FOLLOWUP COMPLAINT: "Things are going reasonably well. I have tried the CBD oil, I am not sure how helpful it has been." HISTORY: The patient is a 58-year-old female who has been followed in the pain clinic because of chronic pain. She feels that the hydrocodone medication is helpful. She takes it as needed. She was also found that the Medrol Dosepak has been beneficial. She continues to have some pain in her shoulders on the left side. Also, has pain into her legs bilaterally. Has some neck discomfort as well. Describes as throbbing, aching, sharp and shooting pain. Rates her pain today as a 10/10. As you recall, she works at night in the laboratory. Being up and active can increase her discomfort. Notes that her pain is exacerbated with walking, lifting, sitting, standing as well as changes in the weather. Feels that the TENS unit cold applications are helpful as well. She has returned today with the desire to have her medications renewed. ALLERGIES: COMPAZINE, MORPHINE. CURRENT MEDICATIONS: Zanaflex 4 mg, Mobic 15 mg, hydrocodone 10/325 one p.o. 4-6 hours p.r.n., gabapentin 300 mg 1 p.o. t.i.d., hydrochlorothiazide 12.5 mg, lisinopril 20 mg, ProAir 1 puff b.i.d., Synthroid 0.25 mcg. PAIN CLINIC ASSESSMENT AND PQRS: 1. The patient is complaining of some arthritic pain involving her shoulders as well as the neck area. She has not been treated for rheumatoid arthritis. 2. Height 5 feet 4 inches, weight 211 pounds, BMI is 36.2. 3. Vital signs: Blood pressure 140/83, pulse 64, respiratory rate 16, room air saturation is 100%. 4. Pain intensity 03/22. 5. Fall risk. The patient has not fallen in the last 3 months. 6. Blood thinner. The patient is not on a blood thinning medication. 7. Hypertension. The patient is being treated for hypertension. 8. Opioids greater than 6 weeks. The patient receives her medication from one source, pain clinic. 9. Risk assessment tool: Low risk for opioid use. 10. Functional assessment 37/70. 11. Recreational drug use. The patient denies use of recreational drugs. 12. Tobacco: The patient does not smoke. [address] [address] PAIN MANAGEMENT CONSULTATION Name: EDGARD BECERRA Room #: REG [facility]#: [id number] Admission: 09/01/18 ������������������ Attend Phys: Andre Parker MD Discharge: ������������������ Date of : 56 Report #: [id number] 13. Alcohol: The patient denies use of alcoholic beverages. PHYSICAL EXAMINATION: GENERAL: The patient is a well-developed, well-nourished white female. Appears her stated age. She is alert and oriented x 3. Affect is appropriate. Speech is fluent. HEENT: Normocephalic, atraumatic. Extraocular muscles intact. Sclerae nonicteric. Mucous membranes are moist. NECK: Without adenopathy or JVD. The patient has some shoulder pain, left as well as the right. Complains of some discomfort in her neck. LUNGS: Clear to auscultation without rhonchi, the patient does have asthma. HEART: Regular rate. S1, S2. ABDOMEN: Protuberant. Bowel sounds present. EXTREMITIES: Upper extremity muscle strength judged to be 5-/5 for the major muscle groups in the upper extremity. The patient has some discomfort in the left shoulder. Has some pain in her left calf and down to her left leg. Has tenderness in the left tensor fascia elen area. IMPRESSION: 1. Right chronic leg pain with right hip pain. 2. History of iliotibial band discomfort, left leg. 3. History of greater trochanteric bursitis. 4. Chronic low back pain. 5. History of migraines. 6. Hypertension. 7. Restless leg syndrome. 8. Acne rosacea. 9. Carpal tunnel syndrome. 10. History of cervical intervention 2002 with limitation of neck movement as a result of surgery. RECOMMENDATIONS: We discussed treatment options with the patient. The patient feels that she has tried the CBD oil. She is not sure how much benefit she has gleaned from that. Her has found it more efficacious. She feels that her medications are helpful. She is not having problems with mentation. Finds that the medication is beneficial with opioids. She is taking them as prescribed. She is aware that opioid medications can be addictive as well as less efficacious because of development of tolerance. A script for her medications has been rewritten. She will be given a Medrol Dosepak. Should her pain become more problematic she will try this in the interim. We would like to thank you for letting us participate in her care. We hope she continues to improve. ��������������������������������������������� <ELECTRONICALLY SIGNED> ���������������������������������������� By: Andre Parker MD ��������������������������������������������� 09/06/18 0828 [id number] Andre Parker MD /nt
== END ==
LOC: PAIN 06:46
DX: M25.551 Pain in right hip (principal); G89.29 Other chronic pain; G56.01 Carpal tunnel syndrome, right upper limb; M54.5 Low back pain; G43.909 Migraine, unspecified, not intractable, without status migrainosus; I10 Essential (primary) hypertension; G25.81 Restless legs syndrome; L71.9 Rosacea, unspecified

== ENCOUNTER → 2018-10-27 | Outpatient (CLI) | payer OTHER ==
[~2018-10-27] VITALS: Ht 162.6 cm; Wt 96.3 kg
[~2018-10-27] MED LIST changes: +NEURONTIN600 MG PO
[2018-10-27 08:04] VITALS: BP 171/85
--- NOTE | 2018-10-27 08:19 | NUR ---
Pain Clinic Assessment: 1. History of Osteoarthritis: Right Lower Extremity History of Rheumatoid Arthritis: Not Applicable 2. Height: 5 ft. 4 in. 162.6 cm. Weight: 212.4 lb. oz. 96.344 kg. Patient's BMI: 36.4 3. Vital Signs: BP: 171/85 Pulse: 63 Resp: 18 Temp: 02 Sat: 100 ECG Mon: 4. Pain Intensity: 6 5. Fall Risk: Dizziness: N Needs help standing or walking: N Fallen in the last 3 months: N Fall risk comments: 6. Patient on Blood Thinner: None 7. History of Hypertension: Y 8. Opioid Therapy greater than 6 weeks: Y Opiate Contract Signed: 06/04/16 9. Risk Assessment Tool Provided: LOW RISK 0/3 10. Functional Assessment Tool: 11. Recreational Drug Use: Never Drug Type: Tobacco Use: Never Smoker Tobacco Type: Amount or Packs/day: How Many Years: Alcohol Use: Yes Frequency: Quant:
--- NOTE | 2018-10-30 12:42 | HPC ---
[facility] [address] [address] PAIN MANAGEMENT CONSULTATION Name: EDGARD BECERRA Gurvinder Room #: REG [place] Chang#: [id number] Admission: 10/27/18 ������������������ Attend Phys: Joslyn Allen Discharge: ������������������ Date of : 56 Report #: [id number] THIS REPORT FOR: //name// [facility] DATE OF SERVICE: 10/27/2018 CHIEF COMPLAINT: Chronic low back pain, shoulder pain and neck pain. HISTORY OF PRESENT ILLNESS: This is a pleasant 58-year-old female who returns to the pain clinic today for refill of her medications that she takes for her ongoing chronic pain that involves her bilateral legs, bilateral shoulders, left hip and neck. She tells me that her pain score is 6/10 today. She has started having neck issues again. She tells me that she had had surgery in 2002, had been quite good for several years, but feels that her pain is returning. She is having pain in her neck as well as in her bilateral hands and her fingertips. She tells me that she could massage her neck and does make it feel better at times. She has changed her pillow that has helped slightly. Occasionally, she does get headaches related to this neck pain. She had talked to Dr. Parker about this in the past. She feels like it is about time to get new x-rays and MRIs, but wondering if she is able to have a steroid dose pack to see if this is helpful in reducing some of the inflammation in her neck. ALLERGIES: COMPAZINE AND MORPHINE. MEDICATIONS: Gabapentin 300 mg 3 times a day, hydrocodone 10/325 q.i.d., tizanidine 4 mg b.i.d., multivitamin, hydrochlorothiazide 12.5 mg, lisinopril 20 mg daily, Advair daily and Synthroid 125 mcg daily. PQRS: 1. She has some arthritic changes in her shoulders, neck and lower back. She is not being treated for rheumatoid arthritis. 2. Height is 5 feet 4 inches, weight is 212, BMI is 36. Vital signs, blood pressure 171/85, pulse is 63, respirations 18, oxygen sat is 100%, pain score is 6/10. 3. Fall risk. Denies dizziness. Does not need help with walking or standing. She has not fallen in the last 3 months. The patient is not on any blood thinners, but does take medicine for hypertension. Opioid therapy is greater than 6 weeks; therefore, an opioid signed contract is on the chart. Her risk assessment tool is low. Functional assessment is 37/70. 4. Recreational drug use, she denies. She is not a smoker and does drink some alcohol. Did check the prescription monitoring system. The patient is filling appropriately for her medications and is due in a few [place] [address] PAIN MANAGEMENT CONSULTATION Name: EDGARD BECERRA Room #: REG PEPE Chang#: [id number] Admission: 10/27/18 ������������������ Attend Phys: Joslyn Allen Discharge: ������������������ Date of : 56 Report #: [id number] is a recent drug screen on the chart. The patient had told us that she was taking some CBD oil, which she did come back positive for THC. She tells me that she is no longer taking that CBD oil because she was worried that that might happen. She said she cannot afford to have that in her system with her job as well and it was not helpful and made her not sleep at night and caused her to have a headache. PHYSICAL EXAMINATION: GENERAL: This is a well-developed, well-nourished white female who appears her stated age, placing her pain score today at 6/10. She is alert and orientated. Her affect is appropriate. HEENT: Normocephalic, atraumatic. Extraocular eye muscles are intact. Mucous membranes are moist. NECK: She complains of some neck pain, on the right occipital area that does radiate into her shoulder. Pain does increase with provocation testing of external rotation and flexion and extension. EXTREMITIES: Upper extremity strength judged to be 5/5 for all major muscle groups in her upper extremities. She has some pain across the lumbar area of her back and has numbness in her bilateral fingertips of both hands. She is not experiencing pain that radiates down her arm at present time. IMPRESSION: 1. Chronic neck pain, post decompression surgery. 2. Chronic leg pain and right hip pain. 3. Chronic low back pain. 4. History of migraines. 5. Complex medical management under terms of written opioid agreement. We reviewed the fact that opiate medications are being used to provide analgesia adequate to support activities of daily living, not attempting to achieve a specific pain score on the 0-10 Visual Analog Scale. The current opiate medications are providing sufficient analgesia to allow the patient to participate in activities of daily living. The patient is not exhibiting any aberrant behavior suggestive of drug diversion. The patient is not having any adverse reactions to medications. The patient is not suffering from daytime somnolence or mental acuity changes. The patient is managing opiate-induced constipation with appropriate jysz-xes-qbblidp agents and dietary considerations. The patient was counseled on concern for caution with operating a motor vehicle while using opiate medications. A physical exam was performed and the patient's functional status was evaluated. All patients with back pain were advised against the bed rest greater than 4 days and were advised to return to normal activities. Pain score assessment was noted and the treatment plan was reviewed with the patient. All current medications, both prescribed and OTC were reviewed and reconciled on the electronic medical record. Tobacco screening was accomplished and smoking [facility] [address] [place] [address] PAIN MANAGEMENT CONSULTATION Name: MARIAMEDGARD L Room #: REG PEPE Chang#: [id number] Admission: 10/27/18 ������������������ Attend Phys: Joslyn Allen Discharge: ������������������ Date of : 56 Report #: [id number] cessation was advised when indicated. BMI was noted and diet/exercise modification was recommended for all patients following outside normal parameters. I reviewed with the patient today their responsibilities to safeguard prescription medications, reviewed their responsibility to utilize medications only as prescribed by the physician. They are to seek and receive pain medications only from 1 physician group ( [facility]). They are to use 1 pharmacy and keep the clinic informed if they change pharmacies. Their responsibilities include making followup visits in a timely fashion and to avoid abrupt discontinuation of medication usage. Their responsibilities further include bringing their medications (bottles from the pharmacy with residual pills) to the visit for possible confirmation of pill counts and the patient understands it is their responsibility to submit to random drug screens to ensure both that the medications prescribed are present, and that no other controlled substances are present. All prescriptions provided today were generated electronically. PLAN: 1. We discussed treatment options with the patient today. The patient tells me she tried the CBD oil and did not find it was beneficial. She tells me that it made her not sleep as well and also caused her headache. Since that time, she found out that it did test positive in her drug screen and she is no longer taking it. 2. She is having issues in her neck. She has had surgery in the past. The doctor told her that the bone spurs and the progression may worsen over time. It has been 16 years since her surgery and her neck is starting to give her problems. She feels that she will need to have an x-ray soon and an MRI, but was wondering if she is able to have a Medrol Dosepak to see if that can calm some of her symptoms down. Dr. Parker had given these to her in the past for her lumbar region pain and they were very beneficial. Prescriptions given today for her Medrol Dosepak to take as directed. I did also encourage her if her pain continues in the next month, we should order her an MRI instead of continue to wait. She is agreeable with this plan of care. 3. Prescriptions given also for her hydrocodone 10/325, #120 for today and 4-week release. This places the patient at 40 MME per the CDC guidelines well under their limits. The patient does not have any problems with constipation or daytime sleepiness from this medication. 4. The patient is seen with Dr. Karel Parker who also collaborated care today. ��������������������������������������������� <ELECTRONICALLY SIGNED> ���������������������������������������� By: Joslyn Allen ��������������������������������������������� 10/30/18 1242 0920 10 Joslyn Allen /akiko
== END ==
LOC: PAIN 06:51
DX: G89.29 Other chronic pain (principal); M47.812 Spondylosis without myelopathy or radiculopathy, cervical region; M47.816 Spondylosis without myelopathy or radiculopathy, lumbar region; M19.011 Primary osteoarthritis, right shoulder; M19.012 Primary osteoarthritis, left shoulder; G43.909 Migraine, unspecified, not intractable, without status migrainosus; Z88.8 Allergy status to other drugs, medicaments and biological substances; Z79.899 Other long term (current) drug therapy; Z88.5 Allergy status to narcotic agent; Z79.891 Long term (current) use of opiate analgesic

== ENCOUNTER → 2018-12-27 | Outpatient (CLI) | payer OTHER ==
[~2018-12-27] VITALS: Ht 162.6 cm; Wt 96.8 kg
[2018-12-27 08:15] VITALS: BP 136/75
--- NOTE | 2018-12-27 08:21 | NUR ---
Pain Clinic Assessment: 1. History of Osteoarthritis: Right Lower Extremity History of Rheumatoid Arthritis: Not Applicable 2. Height: 5 ft. 4 in. 162.6 cm. Weight: 213.4 lb. oz. 96.798 kg. Patient's BMI: 36.6 3. Vital Signs: BP: 136/75 Pulse: 72 Resp: 16 Temp: 02 Sat: 98 ECG Mon: 4. Pain Intensity: 8 5. Fall Risk: Dizziness: N Needs help standing or walking: N Fallen in the last 3 months: Y Fall risk comments: 6. Patient on Blood Thinner: None 7. History of Hypertension: Y 8. Opioid Therapy greater than 6 weeks: Y Opiate Contract Signed: 06/04/16 9. Risk Assessment Tool Provided: LOW RISK 0/3 10. Functional Assessment Tool: 11. Recreational Drug Use: Never Drug Type: Tobacco Use: Never Smoker Tobacco Type: Amount or Packs/day: How Many Years: Alcohol Use: Yes Frequency: Special Occasions Quant: 1-2
--- NOTE | 2018-12-27 15:06 | HPC ---
[facility] [address] [place] [address] PAIN MANAGEMENT CONSULTATION Name: EDGARD BECERRA Room #: REG [facility] Bernardo#: [id number] Admission: 12/27/18 ������������������ Attend Phys: Joslyn Allen Discharge: ������������������ Date of : 56 Report #: [id number] THIS REPORT FOR: //name// [facility] DATE OF SERVICE: 12/27/2018 CHIEF COMPLAINT: Chronic low back pain, shoulder pain and neck pain. HISTORY OF PRESENT ILLNESS: This is a very pleasant 58-year-old female who returns to the pain clinic today for refill of her medications that she uses to help treat her chronic back pain as well as bilateral shoulder pain, left hip and leg pain and neck pain. She tells me that yesterday her dog pulled her off her porch when she went to go dayan a bumblebee. She did fall down hurting her back. She is now experiencing some pins and needles that are radiating down her left leg to her knee. She tells me she has used ice on her back since yesterday as well as her muscle relaxant and her pain pills. She tells me that it is hurting quite significantly, rating her pain score at 8/10. She tells me that it is a throbbing, aching, sharp, pins and needles pain, worse with walking, lifting, sitting and standing. She reports that she is getting ready to have her daughter's wedding in the next few weeks and she is hopeful that this will get better over the next few days and is requesting a Medrol Dosepak as well as her ongoing pain medicine that she gets from our clinic. ALLERGIES: COMPAZINE and MORPHINE. CURRENT LIST OF MEDICATIONS: Hydrocodone 10/325 q.i.d., tizanidine 4 mg b.i.d., gabapentin 300 mg 3 times a day, multivitamin, hydrochlorothiazide, lisinopril, Advair, albuterol and Synthroid. PQRS: 1. She has a history of osteoarthritis in her spine and her lower extremities. Denies any rheumatoid arthritis. 2. Height is 5 feet 4 inches, weight is 213 and BMI is 36. 3. VITAL SIGNS: Blood pressure 136/75, pulse of 72, respirations 16 and oxygen sat is 98. 4. Pain score is 8/10. 5. Denies dizziness. Does not need help walking or standing and has fallen in the last 3 months. 6. The patient is not on any blood thinners, does take medicine for hypertension. 7. Opioid therapy is greater than 6 weeks; therefore, an opioid signed contract is on the chart. Risk assessment tool is low. Functional assessment is 37/70. 8. Recreational drug use, she denies. She is not a smoker and occasionally drinks alcohol. [address] [address] PAIN MANAGEMENT CONSULTATION Name: EDGARD BECERRA Gurvinder Room #: REG [facility] Bernardo#: [id number] Admission: 12/27/18 ������������������ Attend Phys: Joslyn Allen Discharge: ������������������ Date of : 56 Report #: [id number] We did check the prescription monitoring system, the patient is filling appropriately for her medications and is due for those today. There is also a recent drug screen on the chart. PHYSICAL EXAMINATION: GENERAL: This is a well-developed, well-nourished white female who appears her stated age, placing her current pain score at 8/10. She is alert and oriented. HEENT: Normocephalic and atraumatic. Extraocular eye muscles are intact. Mucous membranes are moist. NECK: She complains of neck discomfort that radiates from the base of her skull into the right occipital area and also radiates into her shoulders bilaterally. EXTREMITIES: Upper extremity strength judged to be 5/5 for all major muscle groups. Pain is across the lumbar area, radiating down the left leg following the L4-L5 dermatomal distribution today as a result of a recent fall. She walks with a slightly antalgic gait. Lower extremity strength judged to be 4/5 bilaterally. IMPRESSION: 1. Chronic neck pain post-decompression surgery. 2. Lumbar radiculopathy. 3. Chronic leg pain and right hip pain. 4. History of migraines. 5. Complex medical management under terms of written opioid agreement. We reviewed the fact that opiate medications are being used to provide analgesia adequate to support activities of daily living, not attempting to achieve a specific pain score on the 0-10 Visual Analog Scale. The current opiate medications are providing sufficient analgesia to allow the patient to participate in activities of daily living. The patient is not exhibiting any aberrant behavior suggestive of drug diversion. The patient is not having any adverse reactions to medications. The patient is not suffering from daytime somnolence or mental acuity changes. The patient is managing opiate-induced constipation with appropriate bhyz-ahd-voylgoh agents and dietary considerations. The patient was counseled on concern for caution with operating a motor vehicle while using opiate medications. A physical exam was performed and the patient's functional status was evaluated. All patients with back pain were advised against the bed rest greater than 4 days and were advised to return to normal activities. Pain score assessment was noted and the treatment plan was reviewed with the patient. All current medications, both prescribed and OTC were reviewed and reconciled on the electronic medical record. Tobacco screening was accomplished and smoking cessation was advised when indicated. BMI was noted and diet/exercise modification was recommended for all patients following outside normal parameters. [facility] [address] [place] [address] PAIN MANAGEMENT CONSULTATION Name: EDGARD BECERRA Room #: REG [facility] Matt.#: [id number] Admission: 12/27/18 ������������������ Attend Phys: Joslyn Allen Discharge: ������������������ Date of : 56 Report #: [id number] I reviewed with the patient today their responsibilities to safeguard prescription medications, reviewed their responsibility to utilize medications only as prescribed by the physician. They are to seek and receive pain medications only from 1 physician group ( [facility]). They are to use 1 pharmacy and keep the clinic informed if they change pharmacies. Their responsibilities include making followup visits in a timely fashion and to avoid abrupt discontinuation of medication usage. Their responsibilities further include bringing their medications (bottles from the pharmacy with residual pills) to the visit for possible confirmation of pill counts and the patient understands it is their responsibility to submit to random drug screens to ensure both that the medications prescribed are present, and that no other controlled substances are present. All prescriptions provided today were generated electronically. PLAN: 1. We discussed treatment options with the patient today. The patient is requesting a Medrol Dosepak due to a recent fall with pain that has now radiating down her leg. Medrol Dosepak has helped in the past when she has had flares of her pain. Script given for that today. 2. Scripts also given for her hydrocodone 10/325, #120 for release today and 4 weeks. This places her at 40 morphine milliequivalent according to the CDC guidelines. 3. Tizanidine 4 mg b.i.d., #60 with one refill and gabapentin 300 mg t.i.d., #270 with one refill, this is a 3-month supply with a refill. 4. The patient will return in 2 months for a followup appointment. She will call for an appointment. The patient is seen today with Dr. Parker who collaborated care as well. ��������������������������������������������� <ELECTRONICALLY SIGNED> ���������������������������������������� By: Joslyn Allen ��������������������������������������������� 12/27/18 1506 [id number] Joslyn Allen /nt
== END ==
LOC: PAIN 07:56
DX: M54.16 Radiculopathy, lumbar region (principal); G43.909 Migraine, unspecified, not intractable, without status migrainosus; G89.29 Other chronic pain; M79.606 Pain in leg, unspecified; M25.559 Pain in unspecified hip; M54.2 Cervicalgia; Z79.891 Long term (current) use of opiate analgesic; Z79.899 Other long term (current) drug therapy; Z88.8 Allergy status to other drugs, medicaments and biological substances

== ENCOUNTER → 2019-03-02 | Outpatient (CLI) | payer OTHER ==
[~2019-03-02] VITALS: Ht 162.6 cm; Wt 98.4 kg
[2019-03-02 09:02] VITALS: BP 161/99
--- NOTE | 2019-03-02 09:06 | NUR ---
Pain Clinic Assessment: 1. History of Osteoarthritis: Right Lower Extremity History of Rheumatoid Arthritis: Not Applicable 2. Height: 5 ft. 4 in. 162.6 cm. Weight: 217.0 lb. oz. 98.431 kg. Patient's BMI: 37.2 3. Vital Signs: BP: 161/99 Pulse: 64 Resp: 16 Temp: 02 Sat: 100 ECG Mon: 4. Pain Intensity: 7 NOW 5. Fall Risk: Dizziness: N Needs help standing or walking: N Fallen in the last 3 months: N Fall risk comments: 6. Patient on Blood Thinner: None 7. History of Hypertension: Y 8. Opioid Therapy greater than 6 weeks: Y Opiate Contract Signed: 06/04/16 9. Risk Assessment Tool Provided: LOW RISK 0/3 10. Functional Assessment Tool: 11. Recreational Drug Use: Never Drug Type: Tobacco Use: Never Smoker Tobacco Type: Amount or Packs/day: How Many Years: Alcohol Use: Yes Frequency: Quant:
--- NOTE | 2019-03-23 08:26 | HPC ---
[facility] [address] [place] [address] PAIN MANAGEMENT CONSULTATION Name: EDGARD BECERRA Room #: REG [facility].#: [id number] Admission: 03/02/19 Attend Phys: Andre Parker MD Discharge: Date of : 56 Report #: [id number] THIS REPORT FOR: //name// CC: Andre Stratton MD DATE OF SERVICE: 03/02/2019 CHIEF COMPLAINT: Here for medication renewal. HISTORY: The patient is a 59-year-old female who has been followed in the pain clinic because of chronic pain. As you may recall, she has a history of chronic pain involving her hips and down in her leg. She has tried a number of measures in the past. Hydrocodone continues to be helpful. She has used a Medrol Dosepak in the past and found those beneficial when she had exacerbations of her discomfort. Has some pain in her shoulders. Has pain in her low back area and down into her legs bilaterally. She on occasion has problems with her neck. She describes her pain generally as a throbbing and aching discomfort. Rates it as a 7/10 at this point. Notes that walking, lifting, sitting, standing, and change in weather can be problematic. She has a TENS unit, she uses. The areas that are most problematic are left and right leg, left and right shoulder, as well as the left hip. ALLERGIES: COMPAZINE AND MORPHINE. CURRENT MEDICATIONS: Zanaflex 4 mg, Mobic 15 mg, hydrocodone 10/325 one p.o. q.4-6 hours p.r.n., gabapentin 300 mg 1 p.o. t.i.d., hydrochlorothiazide 12.5 mg, lisinopril 20 mg, ProAir 1 puff b.i.d., and Synthroid 0.25 mg. PAIN CLINIC ASSESSMENT/PQRS: 1. The patient is complaining of some arthritic pain and discomfort in her shoulders as well as in her neck. She is not being treated for rheumatoid arthritis. 2. Height 5 feet 4 inches, weight 217 pounds, BMI is 37.2. 3. Vital Signs: Blood pressure 161/99, pulse 64, respiratory rate 16, room air saturation 100%. 4. Pain intensity 12/20. 5. Fall history: The patient has not fallen in the last 3 months. 6. Blood thinner. The patient is not on a blood thinning medication. 7. Hypertension. The patient is being treated for hypertension. 8. Opioids greater than 6 weeks. The patient receives medication from one source the pain clinic. 9. Risk assessment tool, low for opioid use. 10. Functional assessment tool 37/70. 11. Recreational drug [place] [address] PAIN MANAGEMENT CONSULTATION Name: EDGARD BECERRA [facility] [id number] Admission: 03/02/19 Attend Phys: Andre Parker MD Discharge: Date of : 56 Report #: [id number] 12. Tobacco: The patient denies. 13. Alcohol: The patient occasionally drinks an alcoholic beverage. PHYSICAL EXAMINATION: GENERAL: The patient is a well-developed, well-nourished white female. Appears her stated age. She is alert and oriented x 3. Her affect is appropriate. Speech is fluent. HEENT: Normocephalic, atraumatic. Extraocular eye muscles intact. Sclerae nonicteric. Mucous membranes are moist. NECK: Without adenopathy or JVD. The patient has some pain in her shoulders, left and right. Also, has some complaint of pain and discomfort in her neck. LUNGS: Clear to auscultation without rhonchi or rales. HEART: Regular rate. S1, S2. ABDOMEN: Protuberant. Bowel sounds present. MUSCULOSKELETAL: Upper extremity muscle strength judged to be 5/5 for the major muscle groups in the upper extremity. The patient has some discomfort in her left shoulder. She has pain and discomfort in her left calf as well as in her left leg. She has some tenderness in the area of the left tensor fascia elen. IMPRESSION: 1. Right chronic leg pain and hip pain. 2. History of iliotibial band discomfort of the left leg. 3. History of greater trochanteric bursitis. 4. Chronic low back pain. 5. History of migraine. 6. Hypertension. 7. Restless leg syndrome. 8. Acne rosacea. 9. Carpal tunnel syndrome. 10. History of cervical surgery in 2002 with limitation of neck movement as result of surgery. RECOMMENDATIONS: We discussed treatment options with the patient. At this juncture, we will continue with her medications. A script for her medications have been written. She will continue with the hydrocodone 10 mg one p.o. q.4-6 hours p.r.n. for pain. She will also continue with gabapentin 300 mg 1 p.o. t.i.d. The patient also will use Zanaflex to help with muscle spasms b.i.d. The patient has been provided a Medrol Dosepak to take in the interim should her pain become more problematic. She has found that this beneficial in the past. We would like to thank you for letting us participate in her care. We hope she continues to improve. <ELECTRONICALLY SIGNED> By: Andre Parker MD 03/23/19 0826 1410 [id number] Andre Parker MD /[facility]
== END ==
LOC: PAIN 03-01 14:17
DX: M54.5 Low back pain (principal); M70.60 Trochanteric bursitis, unspecified hip; G43.909 Migraine, unspecified, not intractable, without status migrainosus; I10 Essential (primary) hypertension; G25.81 Restless legs syndrome; L71.9 Rosacea, unspecified; G56.00 Carpal tunnel syndrome, unspecified upper limb; Z88.8 Allergy status to other drugs, medicaments and biological substances; Z79.899 Other long term (current) drug therapy

== ENCOUNTER → 2019-04-27 | Outpatient (CLI) | payer OTHER ==
[~2019-04-27] VITALS: Ht 162.6 cm; Wt 96.2 kg
[2019-04-27 08:18] VITALS: BP 152/80
--- NOTE | 2019-04-27 08:22 | NUR ---
Pain Clinic Assessment: 1. History of Osteoarthritis: Right Lower Extremity History of Rheumatoid Arthritis: Not Applicable 2. Height: 5 ft. 4 in. 162.6 cm. Weight: 212.0 lb. oz. 96.163 kg. Patient's BMI: 36.4 3. Vital Signs: BP: 152/80 Pulse: 78 Resp: 16 Temp: 02 Sat: 100 ECG Mon: 4. Pain Intensity: 8 NOW 5. Fall Risk: Dizziness: N Needs help standing or walking: N Fallen in the last 3 months: N Fall risk comments: 6. Patient on Blood Thinner: None 7. History of Hypertension: Y 8. Opioid Therapy greater than 6 weeks: Y Opiate Contract Signed: 06/04/16 9. Risk Assessment Tool Provided: LOW RISK 0/3 10. Functional Assessment Tool: 11. Recreational Drug Use: Never Drug Type: Tobacco Use: Never Smoker Tobacco Type: Amount or Packs/day: How Many Years: Alcohol Use: Yes Frequency: Quant:
--- NOTE | 2019-05-15 09:03 | HPC ---
Formerly [facility] [address] [address] PAIN MANAGEMENT CONSULTATION Name: EDGARD BECERRA Gurvinder Room #: REG [facility].#: [id number] Admission: 04/27/19 Attend Phys: Andre Parker MD Discharge: Date of : 56 Report #: [id number] THIS REPORT FOR: //name// [facility] DATE OF SERVICE: 04/27/2019 CHIEF COMPLAINT: Pain in the right hip as well as pain in the right knee and ankle. HISTORY: The patient is a 59-year-old female who has been followed in the pain clinic. As you recall, she has a history of chronic pain. She has pain that involves her hips. It also radiates down into her leg and has involved her ankle. She continues to work in a laboratory. Lots of walking and standing on her feet exacerbate her discomfort. She also has pain in her right arm and in her shoulder. Has some pain in her neck. Rates her pain overall today as an 8/10. Pain is most problematic on the right hip, which is shooting down into her knee and ankle on the right side. Notes that as the weather has changed, her pain has increased. Notes increased discomfort with walking, sitting, and standing. ALLERGIES: COMPAZINE, MORPHINE. CURRENT MEDICATIONS: Zanaflex 4 mg, Mobic 15 mg, hydrocodone 10/325 p.r.n. q.4 h., gabapentin 300 mg t.i.d., hydrochlorothiazide 12.5 mg, lisinopril 20 mg, ProAir 1 puff b.i.d., Synthroid 0.25 mg. PAIN CLINIC ASSESSMENT AND PQRS: 1. The patient has some arthritic discomfort in her shoulders as well as her neck. She has pain and discomfort radiating down into her right hip. She is not being treated for rheumatoid arthritis. 2. Height 5 feet 4 inches, weight 212 pounds, BMI is 36.4. 3. Vital signs: Blood pressure 152/78, heart rate was 78, respiratory rate 16, room air saturation 100%. 4. Pain intensity 01/20. 5. Fall history: The patient has not fallen in the last 3 months. 6. Blood thinner. The patient is not on a blood thinning medication. 7. Hypertension. The patient is being treated for hypertension. 8. Opioids: Low risk. 9. Functional assessment tool: 37/70. 10. Recreational drug use. The patient denies use of recreational drugs. 11. Tobacco: The patient does not vape on a regular basis. 12. Alcohol: The patient occasionally drinks alcoholic beverages. PHYSICAL EXAMINATION: Formerly [facility] [address] [place] [address] PAIN MANAGEMENT CONSULTATION Name: BECERRAEDGARD Room #: REG [facility]#: [id number] Admission: 04/27/19 Attend Phys: Andre Parker MD Discharge: Date of : 56 Report #: [id number] GENERAL: The patient is a well-developed, well-nourished white female. Appears her stated age. She is alert and oriented x 3. Her affect is appropriate. Speech is fluent. HEENT: Normocephalic, atraumatic. Extraocular eye muscles intact. Sclerae nonicteric. Mucous membranes are moist. NECK: Without adenopathy or JVD. LUNGS: Clear to auscultation without rhonchi or rales. HEART: Regular rate. S1, S2. ABDOMEN: Nontender. Bowel sounds present. MUSCULOSKELETAL: Without significant scoliosis, kyphosis, or lordosis. The patient has pain in the right hip. Notes that there is pain that shoots down the lateral portion of her leg to involve her knee as well as down into her ankle. Notes some discomfort in her left shoulder. IMPRESSION: 1. Right chronic leg pain and hip pain. 2. History of iliotibial band discomfort on the left leg. 3. History of greater trochanteric bursitis. 4. Chronic low back pain. 5. History of migraines. 6. Hypertension. 7. Restless leg syndrome. 8. Acne rosacea. 9. Carpal tunnel syndrome. 10. History of cervical limitation in her neck, status post cervical intervention in 2002 with limitation of movement. RECOMMENDATIONS: We discussed re-treatment options with the patient. Risks and benefits of her medications were discussed. The patient feels that the medications are helpful. They continue to be beneficial. 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 She feels that her sensorium is clear. She has tried CBD oil, but did not find that this was very effective. She is aware that opioid medications can be problematic in certain people. She has not shown any signs of addiction. She takes her medications as prescribed. She will call us if she has any concerns. We would like to thank you for letting us participate in her care. A script for her medications has all been rewritten. She will continue with a Medrol Dosepak p.r.n. to help with her pain. Also, continue with hydrocodone 10/325 one p.o. q.4-6 h., total of 120 tablets for the next 2 months. She will continue with gabapentin 300 mg 1 p.o. t.i.d. She will also continue with tizanidine to help with muscle spasms 4 mg p.o. b.i.d. She will call us if she has any concerns. Formerly [facility] [address] [place] [address] PAIN MANAGEMENT CONSULTATION Name: BECERRAEDGARD Room #: REG [facility].#: [id number] Admission: 04/27/19 Attend Phys: Andre Parker MD Discharge: Date of : 56 Report #: [id number] We would like to thank you for letting us participate in her care. We hope she continues to improve. <ELECTRONICALLY SIGNED> By: Andre Parker MD 05/15/19 0903 [id number] 35 Andre Parker MD /nt
== END ==
LOC: PAIN 06:42
DX: M25.551 Pain in right hip (principal); M25.561 Pain in right knee; M25.571 Pain in right ankle and joints of right foot; M54.5 Low back pain; G89.29 Other chronic pain; I10 Essential (primary) hypertension; G25.81 Restless legs syndrome; L71.9 Rosacea, unspecified; G56.00 Carpal tunnel syndrome, unspecified upper limb; Z87.39 Personal history of other diseases of the musculoskeletal system and connective tissue; Z86.69 Personal history of other diseases of the nervous system and sense organs; Z88.8 Allergy status to other drugs, medicaments and biological substances; Z79.899 Other long term (current) drug therapy

== ENCOUNTER → 2019-06-27 | Outpatient (CLI) | payer OTHER ==
[~2019-06-27] VITALS: Ht 162.6 cm; Wt 93.4 kg
[2019-06-27 08:35] VITALS: BP 162/83
--- NOTE | 2019-06-27 08:50 | NUR ---
Pain Clinic Assessment: 1. History of Osteoarthritis: Right Lower Extremity NECK History of Rheumatoid Arthritis: Not Applicable 2. Height: 5 ft. 4 in. 162.6 cm. Weight: 206.0 lb. oz. 93.441 kg. Patient's BMI: 35.3 3. Vital Signs: BP: 162/83 Pulse: 77 Resp: 16 Temp: 02 Sat: 98 ECG Mon: 4. Pain Intensity: 5 5. Fall Risk: Dizziness: N Needs help standing or walking: N Fallen in the last 3 months: N Fall risk comments: 6. Patient on Blood Thinner: None 7. History of Hypertension: Y 8. Opioid Therapy greater than 6 weeks: Y Opiate Contract Signed: 06/04/16 9. Risk Assessment Tool Provided: LOW RISK 0/3 10. Functional Assessment Tool: 11. Recreational Drug Use: Never Drug Type: Tobacco Use: Never Smoker Tobacco Type: Amount or Packs/day: How Many Years: Alcohol Use: Yes Frequency: Special Occasions Quant: 1-2
--- NOTE | 2019-06-28 08:20 | HPC ---
[facility] [address] [place] [address] PAIN MANAGEMENT CONSULTATION Name: EDGARD BECERRA Room #: REG [facility]#: [id number] Admission: 06/27/19 Attend Phys: Joslyn Allen Discharge: Date of : 56 Report #: [id number] THIS REPORT FOR: //name// CC: Joslyn Stratton MD DATE OF SERVICE: 06/27/2019 CHIEF COMPLAINT: Chronic pain hip, knees, neck and shoulders. HISTORY OF PRESENT ILLNESS: This is a 59-year-old female who returns to the pain clinic today for refills of her medications that she uses to take to help treat her ongoing chronic pain in various locations. Today, she is reporting pain in her legs, hips, shoulders and her neck. It is a constant throbbing, aching pain, rating pain score today at 5/10. She feels that walking, lifting and prolonged standing as well as weather changes do increase her pain. She feels that her medications as well as TENS unit are beneficial. She does report that she had influenza A earlier this year and that was followed by the stomach flu. She feels that her joints are finally feeling back to normal after her flu outbreak. She denies any problems with constipation or daytime sleepiness as a result of her medications. She does work overnight cashier, so currently she is complaining that she is very tired since she just got off work. ALLERGIES: COMPAZINE AND MORPHINE. CURRENT LIST OF MEDICATIONS: Hydrocodone 10/325 p.r.n., tizanidine, gabapentin, multivitamin, hydrochlorothiazide, lisinopril, Advair and Synthroid. PQRS: 1. The patient has arthritic changes in her neck and lower extremities. Denies any rheumatoid arthritis. 2. Height is 5 feet 4 inches, weight is 206, BMI is 35. 3. Vital Signs: 162/83, pulse is 77, respirations 16, oxygen sat is 98. 4. Pain score is 5/10. 5. Denies dizziness, does not need help walking or standing, has not fallen in the last 3 months. 6. The patient is on blood thinners, but does take medicine for hypertension. Her opioid therapy is greater than 6 weeks; therefore, an opiate signed contract is on the chart. 7. Risk assessment tool is low. 8. Functional assessment is 37/70. 9. Recreational drug use, she denies. She is not a smoker and occasionally drinks alcohol. [address] [address] PAIN MANAGEMENT CONSULTATION Name: EDGARD BECERRA Room #: REG [facility]#: [id number] Admission: 06/27/19 Attend Phys: Joslyn Allen Discharge: Date of : 56 Report #: [id number] According to the prescription monitoring system, the patient is due to fill her medications today. She is filling them in a timely fashion from Dr. Karel Parker. Her current morphine mEq is 40, well below the CDC guidelines. PHYSICAL EXAMINATION: GENERAL: This is a well-developed, well-nourished 59-year-old female who rating her pain score at 5/10. Her affect is appropriate. HEENT: Normocephalic, atraumatic. Extraocular eye muscles are intact. Mucous membranes are moist. NECK: Without adenopathy or JVD. MUSCULOSKELETAL: She is without significant kyphosis, scoliosis or lordosis. She has pain in her lumbar spine that radiates down her bilateral legs, right greater than the left. Also complains of tenderness in her neck along the paraspinal musculature. Pain is increased with rotation and lateral [id number] tilt. IMPRESSION: 1. Chronic leg pain and bilateral hip pain. 2. History of greater trochanteric bursitis. 3. Chronic low back pain. 4. History of migraines. 5. Hypertension. 6. History of cervical limitations post-cervical intervention in 2002. We reviewed the fact that opiate medications are being used to provide analgesia adequate to support activities of daily living, not attempting to achieve a specific pain score on the 0-10 Visual Analog Scale. The current opiate medications are providing sufficient analgesia to allow the patient to participate in activities of daily living. The patient is not exhibiting any aberrant behavior suggestive of drug diversion. The patient is not having any adverse reactions to medications. The patient is not suffering from daytime somnolence or mental acuity changes. The patient is managing opiate-induced constipation with appropriate [id number] agents and dietary considerations. The patient was counseled on concern for caution with operating a motor vehicle while using opiate medications. A physical exam was performed and the patient's functional status was evaluated. All patients with back pain were advised against the bed rest greater than 4 days and were advised to return to normal activities. Pain score assessment was noted and the treatment plan was reviewed with the patient. All current medications, both prescribed and OTC were reviewed and reconciled on the electronic medical record. Tobacco screening was accomplished and smoking cessation was advised when indicated. BMI was noted and diet/exercise modification was recommended for all patients following outside normal parameters. [address] [address] PAIN MANAGEMENT CONSULTATION Name: EDGARD BECERRA Room #: REG [facility]#: [id number] Admission: 06/27/19 Attend Phys: Joslyn Allen Discharge: Date of : 56 Report #: [id number] I reviewed with the patient today their responsibilities to safeguard prescription medications, reviewed their responsibility to utilize medications only as prescribed by the physician. They are to seek and receive pain medications only from 1 physician group ( [facility]). They are to use 1 pharmacy and keep the clinic informed if they change pharmacies. Their responsibilities include making followup visits in a timely fashion and to avoid abrupt discontinuation of medication usage. Their responsibilities further include bringing their medications (bottles from the pharmacy with residual pills) to the visit for possible confirmation of pill counts and the patient understands it is their responsibility to submit to random drug screens to ensure both that the medications prescribed are present, and that no other controlled substances are present. All prescriptions provided today were generated electronically. PLAN: 1. We discussed treatment options with the patient today. We will refill her hydrocodone 10/325, #120 for today and 4 weeks. The patient is not needing a refill of her tizanidine or gabapentin at this time. 2. The patient did request a refill of another prescription of Medrol Dosepak to have in case she has a flare. I explained to the patient that we have to monitor the intake of her steroids. I described to her the cushingoid symptoms as well as possible increased in osteoporosis as a result of too much steroids. The patient's last fill of her steroids was in May, explained to her that we would think about refilling that in 3 months' time if needed for pain. She verbalized understanding of the side effects from too much steroid intake. 3. The patient is seen in collaboration with Dr. Karel Parker. The patient will return in 2 months. <ELECTRONICALLY SIGNED> By: Joslyn Allen 06/28/19 0820 [id number] [id number] Joslyn Allen /nt
== END ==
LOC: PAIN 06:45
DX: M25.551 Pain in right hip (principal); M25.552 Pain in left hip; M54.5 Low back pain; G43.909 Migraine, unspecified, not intractable, without status migrainosus; I10 Essential (primary) hypertension; Z79.891 Long term (current) use of opiate analgesic

== ENCOUNTER → 2019-08-22 | Outpatient (CLI) | payer OTHER ==
[~2019-08-22] VITALS: Ht 162.6 cm; Wt 95.3 kg
[~2019-08-22] MED LIST changes: +ZANAFLEX4 M2 PO
[2019-08-22 07:58] VITALS: BP 11/95
--- NOTE | 2019-08-22 08:05 | NUR ---
Pain Clinic Assessment: 1. History of Osteoarthritis: Right Lower Extremity NECK History of Rheumatoid Arthritis: Not Applicable 2. Height: 5 ft. 4 in. 162.6 cm. Weight: 210.0 lb. oz. 95.256 kg. Patient's BMI: 36.0 3. Vital Signs: BP: 11/95 Pulse: 62 Resp: 16 Temp: 02 Sat: 100 ECG Mon: 4. Pain Intensity: 5-6 5. Fall Risk: Dizziness: Y Needs help standing or walking: N Fallen in the last 3 months: N Fall risk comments: 6. Patient on Blood Thinner: None 7. History of Hypertension: Y 8. Opioid Therapy greater than 6 weeks: Y Opiate Contract Signed: 06/04/16 9. Risk Assessment Tool Provided: LOW RISK 1 10. Functional Assessment Tool: 11. Recreational Drug Use: Never Drug Type: Tobacco Use: Never Smoker Tobacco Type: Amount or Packs/day: How Many Years: Alcohol Use: Yes Frequency: Quant:
--- NOTE | 2019-08-22 10:07 | HPC ---
[facility] [address] [address] PAIN MANAGEMENT CONSULTATION Name: EDGARD BECERRA [id number] Admission: 08/22/19 Attend Phys: Joslyn Allen Discharge: Date of : 56 Report #: [id number] THIS REPORT FOR: cc: Vida Stratton MD,Joslyn Sales MD ~ CC: Joslyn Stratton DATE OF SERVICE: 08/22/2019 CHIEF COMPLAINT: Chronic hip pain, knees, neck, and shoulder pain. HISTORY OF PRESENT ILLNESS: This is a 59-year-old female who returns to the pain clinic today for refill of her medications that she uses to help treat her ongoing multiple pain generators. Today, she is reporting her pain score of 5/6. The most significant pain is in her left shoulder as well as her bilateral hips. It is a constant throbbing pain, worse with walking, lifting any objects with her arm, as well as prolonged standing. She feels that the weather changes and the dampness have increased her arthritic pains. She finds the medications beneficial as well as using a TENS unit on her hip and left shoulder. Today she is also reporting a headache and slight vertigo. Her blood pressure has been significantly up. She has been monitoring her blood pressure. It is 181/95 today. As I said, she does complain of a significant headache. She has been working with her primary care doctor adjusting her medications, but she believes she needs to go back and have it increased again. ALLERGIES: COMPAZINE AND MORPHINE. CURRENT LIST OF MEDICATIONS: Hydrocodone, tizanidine, gabapentin, multivitamin, hydrochlorothiazide, lisinopril, Advair, albuterol, levothyroxine, and meloxicam. PATIENT'S PQRS: She has arthritic changes in her hips and neck. Denies rheumatoid arthritis. Height is 5 feet 4 inches, weight is 210, BMI is 36. Vital signs 181/95, pulse is 62, respirations 16, oxygen sat is 100. Pain score 5-6. Fall risk, complains of dizziness, has not fallen in the last 3 months. Does not have any need for assistance with walking or standing. She is not on any blood thinners, but does take medicine for hypertension. Her opioid therapy is greater than 6 weeks. We have an opioid signed contract on the chart. Risk assessment tool is low. Functional assessment is 45/70. Recreational drug use, she denies, not a smoker and occasionally drinks alcohol. According to the prescription monitoring system, the patient is filling appropriately for her [address] [address] PAIN MANAGEMENT CONSULTATION Name: PUSHPA BECERRAKP Hollins Room #: REG [facility]#: [id number] Admission: 08/22/19 Attend Phys: Joslyn Allen Discharge: Date of : 56 Report #: [id number] medications. She is due early next week to have this medication refilled. According to the CDC guidelines, her morphine mEq is 40 MME per day. There is a recent drug screen on the chart. We will recheck that at her next visit. PHYSICAL EXAMINATION: GENERAL: This is alert and orientated 59-year-old female who appears her stated age, placing her current pain score today at 5-6. HEENT: Normocephalic, atraumatic. Extraocular eye muscles are intact. Mucous membranes are moist. She does complain of a headache across the temporal area today. NECK: Without adenopathy or JVD. Does have some tenderness in the base of her neck that radiates into her left shoulder. MUSCULOSKELETAL: She is without significant kyphosis, scoliosis, or lordosis. Pain in her lumbar spinal region radiates into her bilateral hips, greater on the right than the left. She has tenderness in her neck in the paraspinal musculature with some radicular component into her left shoulder, but not into her arm. IMPRESSION: 1. Chronic bilateral hip pain. 2. History of greater trochanteric bursitis. 3. Chronic low back pain. 4. History of migraines. 5. Hypertension with headache today. 6. History of cervical laminectomy in 2002. We reviewed the fact that opiate medications are being used to provide analgesia adequate to support activities of daily living, not attempting to achieve a specific pain score on the 0-10 Visual Analog Scale. The current opiate medications are providing sufficient analgesia to allow the patient to participate in activities of daily living. The patient is not exhibiting any aberrant behavior suggestive of drug diversion. The patient is not having any adverse reactions to medications. The patient is not suffering from daytime somnolence or mental acuity changes. The patient is managing opiate-induced constipation with appropriate qlpj-wop-gofrpca agents and dietary considerations. The patient was counseled on concern for caution with operating a motor vehicle while using opiate medications. A physical exam was performed and the patient's functional status was evaluated. All patients with back pain were advised against the bed rest greater than 4 days and were advised to return to normal activities. Pain score assessment was noted and the treatment plan was reviewed with the patient. All current medications, both prescribed and OTC were reviewed and reconciled on the electronic medical record. Tobacco screening was accomplished and smoking cessation was advised when indicated. BMI was noted and diet/exercise modification was recommended for all patients following outside normal [facility] [address] [place] [address] PAIN MANAGEMENT CONSULTATION Name: EDGARD BECERRA [facility] [id number] Admission: 08/22/19 Attend Phys: Joslyn RASHAAD Tiffany Discharge: Date of : 56 Report #: [id number] parameters. I reviewed with the patient today their responsibilities to safeguard prescription medications, reviewed their responsibility to utilize medications only as prescribed by the physician. They are to seek and receive pain medications only from 1 physician group ( [facility]). They are to use 1 pharmacy and keep the clinic informed if they change pharmacies. Their responsibilities include making followup visits in a timely fashion and to avoid abrupt discontinuation of medication usage. Their responsibilities further include bringing their medications (bottles from the pharmacy with residual pills) to the visit for possible confirmation of pill counts and the patient understands it is their responsibility to submit to random drug screens to ensure both that the medications prescribed are present, and that no other controlled substances are present. All prescriptions provided today were generated electronically. PLAN: 1. We discussed treatment options with the patient today. The patient continues to have a complaint of an ongoing headache. Her blood pressure is significantly elevated today at 181/95. I encouraged her to call her primary care doctor for an appointment to discuss her blood pressure medicines. We talked about the risks of cerebrovascular accident with a blood pressure this high. The patient does report she had a stressful night at work and feels that may be playing a role in why it is high this morning, but will call her primary care doctor today. 2. We also discussed the patient's ongoing dizziness. Again, I encouraged her to seek medical attention from her primary care doctor. The patient has not taken any medications such as meclizine and she may try that medication as well. She does have exercises to help reduce crystals in her ear. I encouraged her to try those. 3. We will refill her hydrocodone 10/ #120 for today and 4-week supply. Dr. Karel Parker will write these prescriptions for her. I will send electronically her tizanidine 4 mg b.i.d. #60 with 1 refill as well as meloxicam 15 mg daily #30 with 1 refill. I encouraged the patient not to use any Advil, Aleve, or ibuprofen products while taking meloxicam. 4. The patient will return in 2 months or as needed. The patient seen today in collaboration with Dr. Karel Parker. <ELECTRONICALLY SIGNED> By: Joslyn Allen 08/22/19 1007 0841 0855 Joslyn Allen /akiko
== END ==
LOC: PAIN 06:36
DX: M25.552 Pain in left hip (principal); M25.551 Pain in right hip; M54.2 Cervicalgia; M25.569 Pain in unspecified knee; M54.5 Low back pain; I10 Essential (primary) hypertension; R51 Headache; Z88.8 Allergy status to other drugs, medicaments and biological substances; Z88.5 Allergy status to narcotic agent; Z79.891 Long term (current) use of opiate analgesic; Z79.01 Long term (current) use of anticoagulants; Z79.811 Long term (current) use of aromatase inhibitors; Z79.899 Other long term (current) drug therapy

== ENCOUNTER → 2019-10-26 | Outpatient (CLI) | payer OTHER ==
[~2019-10-26] VITALS: Ht 157.5 cm; Wt 95.8 kg
[~2019-10-26] MED LIST changes: +LISINOPRIL10 MG PO; +MELOXICAM15 MG PO; +NEURONTIN 300M300 M2 PO
[2019-10-26 08:07] VITALS: BP 178/114
--- NOTE | 2019-10-26 08:13 | NUR ---
Pain Clinic Assessment: 1. History of Osteoarthritis: Right Lower Extremity NECK BACK History of Rheumatoid Arthritis: Not Applicable 2. Height: 5 ft. 2 in. 157.5 cm. Weight: 211.2 lb. oz. 95.800 kg. Patient's BMI: 38.6 3. Vital Signs: BP: 178/114 Pulse: 69 Resp: 20 Temp: 02 Sat: 97 ECG Mon: 4. Pain Intensity: 4 5. Fall Risk: Dizziness: N Needs help standing or walking: N Fallen in the last 3 months: N Fall risk comments: 6. Patient on Blood Thinner: None 7. History of Hypertension: Y 8. Opioid Therapy greater than 6 weeks: Y Opiate Contract Signed: 06/04/16 9. Risk Assessment Tool Provided: LOW RISK 1 10. Functional Assessment Tool: 11. Recreational Drug Use: Never Drug Type: Tobacco Use: Never Smoker Tobacco Type: Amount or Packs/day: How Many Years: Alcohol Use: Yes Frequency: Special Occasions Quant: 1
--- NOTE | 2019-10-29 14:36 | HPC ---
[facility] [address] [address] PAIN MANAGEMENT CONSULTATION Name: EDGARD BECERRA [id number] Admission: 10/26/19 Attend Phys: Joslyn Allen Discharge: Date of : 56 Report #: [id number] THIS REPORT FOR: cc: Vida Stratton MD, Paula V. MD Hocker, Amanda CNS ~ CC: Marie Parker MD DATE OF SERVICE: 10/26/2019 CHIEF COMPLAINT: Chronic hip pain, neck pain, knee pain and left shoulder pain. HISTORY OF PRESENT ILLNESS: This is a 59-year-old female who is well known to the pain clinic. She currently takes medications to treat ongoing multiple pain generators. Today, she is here for a refill of her medications, rating her pain a 4/10. She feels that her hip and knees are the most problematic areas, though occasionally she has been having some ankle pain at nighttime. Her pain usually increases with walking and weather changes and prolonged standing. She feels that the medications that she takes as well as TENS unit are very beneficial in helping control most of her pain. Today, the patient is stating that she has been having a slight headache. 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 They have been quite busy with more tests than normal and she feels that this has increased her stress level, which has been causing her headache. Her blood pressure is also elevated today, which it was at her last visit as well. ALLERGIES: COMPAZINE and MORPHINE. CURRENT LIST OF MEDICATIONS: Meloxicam 15 mg daily, tizanidine 4 mg b.i.d., hydrocodone 10/325 p.r.n., gabapentin 300 mg t.i.d., multivitamin, lisinopril 10 mg, Advair, albuterol, and Synthroid. PQRS: 1. She has arthritic changes in her hips, knees and neck. Denies any rheumatoid arthritis. 2. Height is 5 feet 2 inches, Weight is 211, BMI is 38. Vital signs 117/114, pulse of 69, respirations 20, oxygen sat is 97%. Pain score is 4/5. 3. Denies dizziness, does not need help walking or standing, has not fallen in the last 3 months. She is not on any blood thinners, but does take medicine for hypertension. Opioid therapy is greater than 6 weeks; therefore, an opioid signed contract is on the chart. Risk assessment is low. Functional assessment is 45/70. 4. Recreational drug use, she denies. She is not a smoker and occasionally drinks alcohol. [address] [address] PAIN MANAGEMENT CONSULTATION Name: EDGARD BECERRA Gurvinder Room #: REG PE[facility] Chang#: [id number] Admission: 10/26/19 Attend Phys: Joslyn Allen Discharge: Date of : 56 Report #: [id number] According to the prescription monitoring system, she is filling appropriately for her medications, filling them from only Dr. Parker. Her morphine milliequivalent is 40 MME per day if she takes her full allotted dose. There is a drug screen on the chart that we will repeat again at her next visit. PHYSICAL EXAMINATION: GENERAL: This is alert and orientated 59-year-old female who is well-developed, well-nourished, rating her pain score at 5/10. Her affect is appropriate. HEENT: Normocephalic, atraumatic. Extraocular eye muscles are intact. She is wearing a mask. She does complain of a headache in her temporal area today. NECK: Without adenopathy or JVD. She has tenderness at the base of her cervical spine that radiates into her left shoulder. MUSCULOSKELETAL: She is without significant kyphosis, lordosis, or scoliosis. Pain in the lumbar region that radiates into her hips. She has tenderness in her bilateral knees and again in her right ankle, no edema noted. IMPRESSION: 1. Chronic bilateral hip pain. 2. Chronic low back pain. 3. History of migraines. 4. Bilateral knee pain. 5. History of cervical limitations with post-cervical interventions in 2002. 6. Complex medical management under terms of written opioid agreement. We reviewed the fact that opiate medications are being used to provide analgesia adequate to support activities of daily living, not attempting to achieve a specific pain score on the 0-10 Visual Analog Scale. The current opiate medications are providing sufficient analgesia to allow the patient to participate in activities of daily living. The patient is not exhibiting any aberrant behavior suggestive of drug diversion. The patient is not having any adverse reactions to medications. The patient is not suffering from daytime somnolence or mental acuity changes. The patient is managing opiate-induced constipation with appropriate [id number]-yvplscb agents and dietary considerations. The patient was counseled on concern for caution with operating a motor vehicle while using opiate medications. RECOMMENDATIONS: 1. We discussed treatment options with the patient today. We discussed that her blood pressure is elevated again today at 178/114. It was elevated on the last several visits as well. I encouraged her to call her primary doctor to have her medications adjusted. The patient does continue to complain of a headache. She reports that she is having increased stress at work. The patient does take lisinopril 10 mg once a day. I encouraged her to call her primary doctor today to have her medications adjusted or make an appointment with her. 2. The patient has been complaining of increased pain on some occasions at [facility] [address] [place] [address] PAIN MANAGEMENT CONSULTATION Name: EDGARD BECERRA Room #: REG [facility].#: [id number] Admission: 10/26/19 Attend Phys: Joslyn Allen Discharge: Date of : 56 Report #: [id number] night in her knees and right ankle. I encouraged her to try some bagu-him-qtatavr Aspercreme, emu cream; she has some capsaicin cream as well to see if those are beneficial in decreasing this pain. It is intermittent and the patient is unsure what activity she has done during the day that increases this pain. 3. We will refill her regular medicines of hydrocodone 10/325, #120 for today and 4 weeks supply, tizanidine 4 mg, #60 with 5 additional refills, meloxicam 15 mg, #30 with 5 additional refills and gabapentin 300 mg 270 with one additional refill. 4. The patient will return in 2 months for followup. At that time, we will collect a random drug screen. The patient is seen today in collaboration with Dr. Karel Parker. <ELECTRONICALLY SIGNED> By: Joslyn Allen 10/29/19 [id number] [id number] Joslyn Allen /akiko
== END ==
LOC: PAIN 06:45
DX: M54.2 Cervicalgia (principal); M54.5 Low back pain; M25.512 Pain in left shoulder; M25.559 Pain in unspecified hip; M25.561 Pain in right knee; M25.562 Pain in left knee; M25.551 Pain in right hip; M25.552 Pain in left hip; F11.20 Opioid dependence, uncomplicated; M96.1 Postlaminectomy syndrome, not elsewhere classified; Z88.8 Allergy status to other drugs, medicaments and biological substances; Z79.899 Other long term (current) drug therapy

== ENCOUNTER → 2019-12-26 | Outpatient (CLI) | payer OTHER ==
[~2019-12-26] VITALS: Ht 157.5 cm; Wt 89.7 kg
[~2019-12-26] MED LIST changes: +NEURONTIN 400400 M1 PO
[2019-12-26 08:09] VITALS: BP 151/91
--- NOTE | 2019-12-26 08:16 | NUR ---
Pain Clinic Assessment: 1. History of Osteoarthritis: Right Lower Extremity NECK BACK History of Rheumatoid Arthritis: Not Applicable 2. Height: 5 ft. 2 in. 157.5 cm. Weight: 197.8 lb. oz. 89.722 kg. Patient's BMI: 36.2 3. Vital Signs: BP: 151/91 Pulse: 60 Resp: 18 Temp: 02 Sat: 18 ECG Mon: 4. Pain Intensity: 9 5. Fall Risk: Dizziness: N Needs help standing or walking: N Fallen in the last 3 months: N Fall risk comments: 6. Patient on Blood Thinner: None 7. History of Hypertension: Y 8. Opioid Therapy greater than 6 weeks: Y Opiate Contract Signed: 06/04/16 9. Risk Assessment Tool Provided: LOW RISK 1 10. Functional Assessment Tool: 11. Recreational Drug Use: Never Drug Type: Tobacco Use: Never Smoker Tobacco Type: Amount or Packs/day: How Many Years: Alcohol Use: Yes Frequency: Quant:
--- NOTE | 2020-01-09 08:53 | HPC ---
[facility] [address] [address] [place] [address] PAIN MANAGEMENT CONSULTATION Name: EDGARD BECERRA Room #: REG [facility]#: [id number] Admission: 12/26/19 Attend Phys: Andre Parker MD Discharge: Date of : 56 Report #: [id number] THIS REPORT FOR: cc: Vida Stratton MD,Andre Lundy MD, MD ~ CC: Andre Stratton DATE OF SERVICE: 12/26/2019 CHIEF COMPLAINT: Continued bilateral leg pain and back pain. HISTORY: The patient is a 59-year-old female who has been followed in the pain clinic for some time because of chronic pain. She has pain in the left hip, left shoulder and both knees. She describes her discomfort as an aching discomfort. Rates it as a 9/10 today. Pain is exacerbated with walking, sitting, standing and with changes in the weather. She does work in the lab. Activity there can increase her pain and discomfort. She feels that her medications are helpful. She has used a TENS unit. She finds that this is helpful. She feels that her medications continue to be beneficial and would like to continue their use. She has returned today for renewal of her medications. ALLERGIES: COMPAZINE AND MORPHINE. CURRENT MEDICATIONS: Lisinopril 10 mg, Neurontin 300 mg t.i.d., tizanidine 4 mg t.i.d., hydrocodone 10/325 one p.o. every 6 hours p.r.n. pain, multivitamins with iron, Advair 250/50 Diskus 2 puffs b.i.d., ProAir 1 puff b.i.d., and Synthroid 0.125 mg. PAIN CLINIC ASSESSMENT AND PQRS: 1. The patient has some arthritic changes in her shoulder as well as in her neck. She has pain and discomfort that radiates down into her hips. She is not being treated for rheumatoid arthritis. 2. Height 5 feet 2 inches, weight 197 pounds, BMI is 36.2. 3. Vital Signs: Blood pressure 151/91, pulse 60, respiratory rate 18, room air saturation is 98. 4. Pain intensity 9/10. 5. Fall history: The patient has not fallen in the last 3 months. 6. Blood thinner. The patient is not on a blood thinning medication. 7. Hypertension. The patient is being treated for hypertension. 8. Opioids greater than 6 weeks. The patient receives medication from one source, pain clinic. 9. Risk assessment tool, low for opioid use. 10. Functional assessment tool 45/70. [place] [address] PAIN MANAGEMENT CONSULTATION Name: BECERRAEDGARD Room #: REG [facility] Bernardo#: [id number] Admission: 12/26/19 Attend Phys: Andre Parker MD Discharge: Date of : 56 Report #: [id number] 11. Recreational drug use. The patient denies. 12. Tobacco: The patient has never smoked. 13. Alcohol: The patient rarely drinks alcoholic beverages. PHYSICAL EXAMINATION: GENERAL: The patient is a well-developed, well-nourished white female. Appears her stated age. She is alert and oriented x 3. Her affect is appropriate. Speech is fluent. HEENT: Normocephalic, atraumatic. Extraocular eye muscles intact. Sclerae nonicteric. Mucous membranes are moist. The patient is wearing a mask. NECK: Without adenopathy or JVD. The patient has some pain and discomfort in the shoulder areas. HEART: Notes heart rate, which is regular. ABDOMEN: Nontender. MUSCULOSKELETAL: Without significant scoliosis, kyphosis or lordosis. The patient has some pain in the right hip. She has pain that radiates down into lateral portion of her legs to the level of her knee. She does have some discomfort in her shoulders. IMPRESSION: 1. Right chronic leg pain and hip pain. 2. History of iliotibial band discomfort on the left leg. 3. History of greater trochanteric bursitis. 4. Chronic low back pain. 5. History of migraines. 6. Hypertension. 7. Restless leg syndrome. 8. Acne rosacea. 9. Carpal tunnel syndrome. 10. History of cervical pain with limitations in her neck, status post cervical intervention in 2002 with limitation ____. RECOMMENDATIONS: We discussed treatment options with the patient. At this juncture, we will continue with her medications. A script for her medications have been rewritten. The patient will continue with gabapentin 400 mg 1 p.o. t.i.d. She will also continue with hydrocodone 10/325 one p.o. q.i.d. The patient will use the tizanidine 4 mg b.i.d. as needed to help decrease muscle spasms. She will call us if she has any concerns. We would like to thank you for letting us participate in her care. She is aware that opioid medications can become less effective as time goes on. She has not shown any signs of addiction. She keeps her medications in a guarded area. She is aware that opioids have caused of a number of people over the past few [address] [address] PAIN MANAGEMENT CONSULTATION Name: EDGARD BECERRA Room #: REG [facility]#: [id number] Admission: 12/26/19 Attend Phys: Andre Parker MD Discharge: Date of : 56 Report #: [id number] years. She feels the medications are helpful and continues to make her life more ____. <ELECTRONICALLY SIGNED> By: Andre Parker MD 01/09/20 0853 [id number] Andre Parker MD /nt
== END ==
LOC: PAIN 06:50
PROVIDERS: ATTEND Anesthesiology Pain Medicine
DX: M79.604 Pain in right leg (principal); M25.551 Pain in right hip; G89.29 Other chronic pain; G43.909 Migraine, unspecified, not intractable, without status migrainosus; I10 Essential (primary) hypertension; Z98.1 Arthrodesis status; Z79.891 Long term (current) use of opiate analgesic

== ENCOUNTER → 2020-02-20 | Outpatient (CLI) | payer OTHER ==
[~2020-02-20] VITALS: Ht 157.5 cm; Wt 89.2 kg
--- NOTE | ~2020-02-20 | HPC ---
[facility] [address] [place] [address] PAIN MANAGEMENT CONSULTATION Name: EDGARD BECERRA Room #: REG [facility] Matt#: [id number] Admission: 02/20/20 Attend Phys: Andre Parker MD Discharge: Date of : 56 Report #: [id number] THIS REPORT FOR: cc: Vida Stratton MD,Andre Lundy MD, MD ~ CC: Andre Stratton DATE OF SERVICE: 02/20/2020 CHIEF COMPLAINT: Continued back pain down the leg and in the back. HISTORY: The patient is a 59-year-old female who has been followed in the pain clinic. She suffers from chronic pain. She has pain in her left hip. She also has pain in her shoulders and in both knees. She has been experiencing more pain in the lower portion of her back with pain that is radiating down into her sciatic area. She rates this as 4/10. This pain is becoming more and more difficult. As you recall, she does work in the lab. Prolonged standing worsens the pain in her hip and down into her left buttocks and involving her left leg. Rates her pain as 4/10 at this point. She has continued to use medications to help with the pain. TENS unit has been helpful. She has used cold compresses. Notes that the pain can be exacerbated by walking, sitting, standing and with weather changes. She would like to consider an epidural steroid injection in the near future because of this chronic pain, which continues to rise and cause more discomfort. ALLERGIES: COMPAZINE AND MORPHINE. CURRENT MEDICATIONS: Lisinopril 10 mg, Neurontin 300 mg t.i.d., tizanidine 4 mg t.i.d., hydrocodone 10/325 one p.o. q. 6 hours p.r.n., multivitamins with iron, Advair 250/50 Diskus 2 puffs b.i.d., ProAir 1 puff b.i.d., Synthroid 0.125 mg. PAIN CLINIC ASSESSMENT/PQRS: 1. The patient has some arthritic changes in her shoulder as well as in her neck. The patient also has some pain and discomfort that radiates down into her hips and down into the sciatic area. She is not being treated for rheumatoid arthritis. 2. Height 5 feet 2 inches, weight 196 pounds, BMI is 35.9. 3. Vital signs: Blood pressure 196/86, pulse 60, respiratory rate 18, room air saturation is 100%. 4. Pain intensity 4/10. 5. Fall history: The patient has not fallen in the last 3 months. 6. Blood thinner: The patient is not on a blood thinning medication. 7. Hypertension: The patient is being treated for hypertension. 8. Opioids greater than 6 weeks: The [place] [address] PAIN MANAGEMENT CONSULTATION Name: EDGARD BECERRA Gurvinder [facility] [id number] Admission: 02/20/20 Attend Phys: Andre Parker MD Discharge: Date of : 56 Report #: [id number] primary physician. 9. Risk assessment tool: Low for opioid use. 10. Functional assessment tool . 11. Recreational drug use: The patient denies. 12. Alcohol: The patient occasionally drinks alcoholic beverages. PHYSICAL EXAMINATION: GENERAL: The patient is a well-developed, well-nourished, somewhat obese white female, appears her stated age. She is alert and oriented x 3. Her affect is appropriate. Speech is fluent. HEENT: Normocephalic, atraumatic. Extraocular eye muscles intact. Sclerae nonicteric. Mucous membranes are moist. The patient is wearing a facial covering. NECK: Without adenopathy or JVD. The patient does have some discomfort in her shoulders. HEART: Regular rate. ABDOMEN: Nontender. MUSCULOSKELETAL: The patient without significant scoliosis, kyphosis or lordosis. The patient does have some pain in her right hip. She also has pain in the lower portion of her back with pain that is radiating down into her leg and the left side in the L5-S1 dermatomal distribution. IMPRESSION: 1. L5-S1 dermatomal distribution pain with pain in the sciatic nerve on the left side. 2. History of iliotibial band discomfort on the left leg. 3. Chronic leg pain and hip pain. 4. History of greater trochanteric bursitis. 5. Chronic low back pain. 6. History of migraines. 7. History of hypertension. 8. Restless leg syndrome. 9. Acne rosacea. 10. Carpal tunnel syndrome. 11. History of cervical pain with limitation in her neck, status post cervical intervention in 2002. RECOMMENDATIONS: We discussed treatment options with the patient. At this juncture, we will continue with her medications. She has found that her medications are continuing to be helpful. We will renew the gabapentin 400 mg t.i.d. She will also continue with hydrocodone 10/325 one p.o. q.i.d. The patient will also continue with tizanidine. She will follow up in the future because of the pain, which she is experiencing in the low back area with pain in the L5-S1 dermatomal distribution with sensory changes, numbness and tingling. [facility] [address] [place] [address] PAIN MANAGEMENT CONSULTATION Name: EDGARD BECERRA Room #: REG [facility] Chang#: [id number] Admission: 02/20/20 Attend Phys: Andre Parker MD Discharge: Date of : 56 Report #: [id number] We would like to thank you for letting us participate in her care. We hope she continues to improve. By: [id number] Andre Parker MD /PMT
[2020-02-20 08:02] VITALS: BP 196/86
--- NOTE | 2020-02-20 08:07 | NUR ---
Pain Clinic Assessment: 1. History of Osteoarthritis: Right Lower Extremity NECK BACK History of Rheumatoid Arthritis: Not Applicable 2. Height: 5 ft. 2 in. 157.5 cm. Weight: 196.6 lb. oz. 89.177 kg. Patient's BMI: 35.9 3. Vital Signs: BP: 196/86 Pulse: 60 Resp: 18 Temp: 02 Sat: 100 ECG Mon: 4. Pain Intensity: 4 5. Fall Risk: Dizziness: N Needs help standing or walking: N Fallen in the last 3 months: N Fall risk comments: 6. Patient on Blood Thinner: None 7. History of Hypertension: Y 8. Opioid Therapy greater than 6 weeks: Y Opiate Contract Signed: 06/04/16 9. Risk Assessment Tool Provided: LOW RISK 1 10. Functional Assessment Tool: 11. Recreational Drug Use: Never Drug Type: Tobacco Use: Never Smoker Tobacco Type: Amount or Packs/day: How Many Years: Alcohol Use: Yes Frequency: Monthly Quant: 1
== END ==
LOC: PAIN 06:47
PROVIDERS: ATTEND Anesthesiology Pain Medicine
DX: I10 Essential (primary) hypertension (principal); G43.909 Migraine, unspecified, not intractable, without status migrainosus; G56.00 Carpal tunnel syndrome, unspecified upper limb; Z79.899 Other long term (current) drug therapy

== ENCOUNTER → 2020-04-23 | Outpatient (CLI) | payer OTHER ==
[~2020-04-23] VITALS: Ht 157.5 cm; Wt 89.8 kg
[2020-04-23 08:13] VITALS: BP 192/92
--- NOTE | 2020-04-23 08:17 | NUR ---
Pain Clinic Assessment: 1. History of Osteoarthritis: Right Lower Extremity NECK BACK History of Rheumatoid Arthritis: Not Applicable 2. Height: 5 ft. 2 in. 157.5 cm. Weight: 198.0 lb. oz. 89.812 kg. Patient's BMI: 36.2 3. Vital Signs: BP: 192/92 Pulse: 54 Resp: 14 Temp: 02 Sat: 100 ECG Mon: 4. Pain Intensity: 4 5. Fall Risk: Dizziness: N Needs help standing or walking: N Fallen in the last 3 months: N Fall risk comments: 6. Patient on Blood Thinner: None 7. History of Hypertension: Y 8. Opioid Therapy greater than 6 weeks: Y Opiate Contract Signed: 06/04/16 9. Risk Assessment Tool Provided: LOW RISK 1 10. Functional Assessment Tool: 11. Recreational Drug Use: Never Drug Type: Tobacco Use: Never Smoker Tobacco Type: Amount or Packs/day: How Many Years: Alcohol Use: Yes Frequency: Quant:
--- NOTE | 2020-05-15 14:52 | HPC ---
[facility] [place] [address] [address] [place] [address] PAIN MANAGEMENT CONSULTATION Name: EDGARD BECERRA Room #: REG [facility]#: [id number] Admission: 04/23/20 Attend Phys: Andre Parker MD Discharge: Date of : 56 Report #: [id number] THIS REPORT FOR: cc: Vida Stratton MD,Andre Lundy MD, MD ~ CC: Andre Stratton DATE OF SERVICE: 04/23/2020 CHIEF COMPLAINT: Back pain and bilateral leg pain. HISTORY: The patient is a 60-year-old female who has been followed in the Pain Clinic. She suffers from pain involving her left hip. She also suffers from pain involving her shoulders and pain in her knees. She rates her pain as 4/10. Has pain in the left shoulder, right knee, left buttocks and left leg. Notes that the pain is exacerbated with walking, sitting, standing and changes in the weather. She does use a TENS unit at home. She finds her medications are helpful. She uses compresses to help control the pain. She feels that her medications are beneficial. She is not having any complications with the medications. She has returned today with the hopes of having her medications renewed. ALLERGIES: COMPAZINE, MORPHINE. CURRENT MEDICATIONS: Lisinopril 10 mg, Neurontin 300 mg t.i.d., tizanidine 4 mg t.i.d., hydrocodone 10/325 one p.o. every 6 hours p.r.n., multivitamins with iron, Advair Diskus 250/50 two puffs b.i.d., ProAir 1 puff b.i.d., and Synthroid 0.125 mg. PAIN CLINIC ASSESSMENT AND PQRS: 1. The patient has some arthritic changes in her shoulder as well as in her neck. She also has pain and discomfort radiates down into her hips and down into the area of the sciatic nerve. She is not being treated for rheumatoid arthritis. 2. Height 5 feet 2 inches, weight 198 pounds, BMI is 36. 3. Vital signs: Blood pressure 192/92, pulse 54, respiratory rate 14, and room air saturation is 100%. 4. Pain intensity 09/20. 5. Fall history: The patient has not fallen in the last 3 months. 6. Blood thinner. The patient is not on a blood thinning medication. 7. Hypertension. The patient is being treated for hypertension. 8. Opioid therapy greater than 6 weeks. 9. Risk assessment tool, low for opioid use. 10. Functional assessment tool 54/70. [place] [address] PAIN MANAGEMENT CONSULTATION Name: PUSHPA BECERRAKP Hollins Room #: REG [facility] Bernardo#: [id number] Admission: 04/23/20 Attend Phys: Andre Parker MD Discharge: Date of : 56 Report #: [id number] 11. Recreational drug use: The patient denies. 12. Alcohol: The patient occasionally drinks alcoholic beverages. PHYSICAL EXAMINATION: GENERAL: The patient is a well-developed, well-nourished white female, somewhat obese. She is alert and oriented x 3. Her affect is appropriate. Speech is fluent. HEENT: Normocephalic, atraumatic. Extraocular eye muscles intact. Sclerae nonicteric. Mucous membranes are moist. The patient is wearing a facial covering. HEART: Regular rate. ABDOMEN: Nontender. MUSCULOSKELETAL: The patient is without significant scoliosis, kyphosis or lordosis. Has some pain in the lower portion of her back and has pain that radiates down into her legs on the left side in the L5-S1 dermatomal distribution. IMPRESSION: 1. L5-S1 dermatomal distribution with pain in the sciatic nerve, left side. 2. History of iliotibial band discomfort on the left leg. 3. Chronic leg pain and hip pain. 4. History of greater trochanteric bursitis. 5. Chronic low back pain. 6. History of migraines. 7. History of hypertension. 8. Restless leg syndrome. 9. Acne rosacea. 10. Carpal tunnel syndrome. 11. History of cervical pain and limitations and neck with status post cervical intervention 2002. RECOMMENDATIONS: We discussed treatment options with the patient. Risks and benefits of her medications were discussed. We will continue with her current medications. She feels the gabapentin medication is helpful. She feels the hydrocodone medication is helpful. She notes that tizanidine medication helps with muscle spasms. She is able to perform her job at work. She is able to think clearly. She is aware that opioid medications can become less effective as time goes on because of development of tolerance. She has not shown any signs of addiction. She has taken and uses the medication as prescribed. A script for her medications has been rewritten. She will call us if she has any problems with her medications. [facility] [address] [place] [address] PAIN MANAGEMENT CONSULTATION Name: EDGARD BECERRA [facility] #: [facility] [id number] Admission: 04/23/20 Attend Phys: Andre Parker MD Discharge: Date of : 56 Report #: [id number] We would like to thank you for letting us participate in her care. A script for her medications has been sent to her pharmacist. <ELECTRONICALLY SIGNED> By: Andre Parker MD 05/15/20 [id number] [id number] Andre Parker MD /nt
== END ==
LOC: PAIN 06:47
PROVIDERS: ATTEND Anesthesiology Pain Medicine
DX: G54.4 Lumbosacral root disorders, not elsewhere classified (principal); M79.604 Pain in right leg; M79.605 Pain in left leg; M79.606 Pain in leg, unspecified; G25.81 Restless legs syndrome; G56.01 Carpal tunnel syndrome, right upper limb; L71.9 Rosacea, unspecified; I10 Essential (primary) hypertension; G43.909 Migraine, unspecified, not intractable, without status migrainosus; G89.29 Other chronic pain; Z87.39 Personal history of other diseases of the musculoskeletal system and connective tissue; Z88.8 Allergy status to other drugs, medicaments and biological substances; Z79.899 Other long term (current) drug therapy

== ENCOUNTER → 2020-06-18 | Outpatient (CLI) | payer OTHER ==
[~2020-06-18] VITALS: Ht 160 cm; Wt 88.5 kg
[2020-06-18 08:07] VITALS: BP 157/88
--- NOTE | 2020-06-18 08:12 | NUR ---
Pain Clinic Assessment: 1. History of Osteoarthritis: Right Lower Extremity NECK BACK History of Rheumatoid Arthritis: Not Applicable 2. Height: 5 ft. 3 in. 160.0 cm. Weight: 195.0 lb. oz. 88.452 kg. Patient's BMI: 34.6 3. Vital Signs: BP: 157/88 Pulse: 68 Resp: 16 Temp: 02 Sat: 99 ECG Mon: 4. Pain Intensity: 5 5. Fall Risk: Dizziness: N Needs help standing or walking: N Fallen in the last 3 months: N Fall risk comments: 6. Patient on Blood Thinner: None 7. History of Hypertension: Y 8. Opioid Therapy greater than 6 weeks: Y Opiate Contract Signed: 06/04/16 9. Risk Assessment Tool Provided: LOW RISK 1 10. Functional Assessment Tool: 11. Recreational Drug Use: Never Drug Type: Tobacco Use: Never Smoker Tobacco Type: Amount or Packs/day: How Many Years: Alcohol Use: Yes Frequency: Special Occasions Quant: 1
--- NOTE | 2020-06-18 13:24 | HPC ---
[facility] [address] [place] [address] PAIN MANAGEMENT CONSULTATION Name: EDGARD BECERRA Room #: REG [facility].#: [id number] Admission: 06/18/20 Attend Phys: Joslyn Allen Discharge: Date of : 56 Report #: [id number] THIS REPORT FOR: cc: Vida Stratton MD, Paula V. MD Hocker,Joslyn NEIL ~ DATE OF SERVICE: 06/18/2020 CHIEF COMPLAINT: Back pain, hip, knee pain and left shoulder pain. HISTORY OF PRESENT ILLNESS: This is a pleasant 60-year-old female who returns to the pain clinic today for refill of her medications. Today, she is reporting ongoing pain that affects her low back, left hip, shoulders, left greater than right, and her right knee. She reports that the left shoulder has been more problematic lately causing significant increased pain with movement and she has been experiencing some numbness in her hands bilaterally upon awakening in the morning. She reports this sensation has developed over the past couple of weeks, but only lasts a few minutes after she is awake. Her pain is normally worse with walking, sitting and weather changes and believes that her medication as well as TENS unit are beneficial. Today, she would like refills of her medications. ALLERGIES: COMPAZINE AND MORPHINE. CURRENT LIST OF MEDICATIONS: Gabapentin 400 mg t.i.d., tizanidine 4 mg b.i.d., hydrocodone 10/325, lisinopril, multivitamin, Advair, albuterol, levothyroxine. PQRS: 1. She has arthritic changes in her shoulders, hips, knees and back. Denies any rheumatoid arthritis. 2. Height is 5 feet 3 inches, weight is 195, BMI is 34. Vital signs; blood pressure 157/88, pulse is 68, respirations 16, oxygen sat is 99%, pain score is 5/10. 3. Denies dizziness. Does not need help walking or standing, has not fallen in the last 3 months. 4. The patient is not on any blood thinners, but does take medicine for hypertension. Her opioid therapy is greater than 6 weeks; therefore, an opioid signed contract is on the chart. Risk assessment is low. Functional assessment is 45/70. 5. Recreational drug use, she denies. She is not a smoker and occasionally drinks alcohol. According to the prescription monitoring system, her morphine mEq is 40 MME per day. She does fill appropriately according to the report using one pharmacy. There is a drug screen that is [place] [address] PAIN MANAGEMENT CONSULTATION Name: EDGARD BECERRA Gurvinder [facility] [id number] Admission: 06/18/20 Attend Phys: Joslyn Allen Discharge: Date of : 56 Report #: [id number] PHYSICAL EXAMINATION: GENERAL: This is alert and orientated, well-developed, well-nourished, slightly obese white female who appears her stated age of 60. Her affect is appropriate. She is a good historian, rating her pain score 5/10. HEENT: Normocephalic and atraumatic. Extraocular eye muscles are intact. Mucous membranes are moist. She is wearing a mask and glasses. NECK: Without adenopathy or JVD. She has discomfort in her left shoulder, worse with range of motion. MUSCULOSKELETAL: She is without significant scoliosis, kyphosis or lordosis. Pain radiates from her lumbosacral region into her legs following the L5-S1 dermatomal distribution. Her upper extremity strength is symmetrical at 5/5 as well as her lower extremities. IMPRESSION: 1. Lumbar radiculopathy following the L5-S1 dermatomal distribution. 2. Chronic leg and hip pain. 3. History of greater trochanteric bursitis. 4. Chronic low back pain. 5. History of migraines. 6. Carpal tunnel syndrome. 7. Cervical pain, status post cervical intervention. We reviewed the fact that opiate medications are being used to provide analgesia adequate to support activities of daily living, not attempting to achieve a specific pain score on the 0-10 Visual Analog Scale. The current opiate medications are providing sufficient analgesia to allow the patient to participate in activities of daily living. The patient is not exhibiting any aberrant behavior suggestive of drug diversion. The patient is not having any adverse reactions to medications. The patient is not suffering from daytime somnolence or mental acuity changes. The patient is managing opiate-induced constipation with appropriate [id number] agents and dietary considerations. The patient was counseled on concern for caution with operating a motor vehicle while using opiate medications. PLAN: 1. We discussed treatment options with the patient today. The patient does report increasing pain in her left shoulder, worse with significant range of motion. No loss of strength noted in her upper extremities. I have encouraged diclofenac gel to be utilized 2-4 times a day to see if this does help reduce the inflammation. We did briefly discuss physical therapy as a possible option as well, but she does remain quite active. 2. We will continue her on her hydrocodone 10/325. The patient uses up to 4 times a day and finds it very beneficial with very minimal side effects. Scripts sent for [address] Karel Parker electronically. 3. I will continue her on her gabapentin 400 mg t.i.d. #270 with 3 additional refills for a total of a year supply sent to her pharmacy. Hopefully, this will [facility] [address] [place] [address] PAIN MANAGEMENT CONSULTATION Name: EDGARD BECERRA [facility] [id number] Admission: 06/18/20 Attend Phys: Joslyn Allen Discharge: Date of : 56 Report #: [id number] help some of her new numbness and tingly sensation that she is experiencing in her hands if the gabapentin is not beneficial in reducing this. We did discuss a cervical epidural steroid injection. She does have a history of carpal tunnel syndrome, but she does not believe this is what is causing this new sensations. 4. The patient will return in 2 months, she is seen in collaboration with Dr. Parker. <ELECTRONICALLY SIGNED> By: Joslyn Allen 06/18/20 1324 [id number] Joslyn Allen /akiko
== END ==
LOC: PAIN 06:43
PROVIDERS: ATTEND Clinical Nurse Specialist Adult Health
DX: M54.16 Radiculopathy, lumbar region (principal); M25.569 Pain in unspecified knee; M25.559 Pain in unspecified hip; M79.609 Pain in unspecified limb; Z86.69 Personal history of other diseases of the nervous system and sense organs; Z88.8 Allergy status to other drugs, medicaments and biological substances; Z79.899 Other long term (current) drug therapy

== ENCOUNTER → 2020-08-13 | Outpatient (CLI) | payer OTHER ==
[~2020-08-13] VITALS: Ht 160 cm; Wt 90.8 kg
[~2020-08-13] MED LIST changes: -LISINOPRIL10 MG PO; +NEURONTIN 400M400 M2 PO; +NORVASC 2.5 MG2.5 M1 PO; +ZESTRIL40 MG PO
[2020-08-13 08:09] VITALS: BP 132/71
--- NOTE | 2020-08-13 08:20 | NUR ---
Pain Clinic Assessment: 1. History of Osteoarthritis: Right Lower Extremity NECK BACK History of Rheumatoid Arthritis: Not Applicable 2. Height: 5 ft. 3 in. 160.0 cm. Weight: 200.2 lb. oz. 90.810 kg. Patient's BMI: 35.5 3. Vital Signs: BP: 132/71 Pulse: 60 Resp: 18 Temp: 02 Sat: 100 ECG Mon: 4. Pain Intensity: 5 5. Fall Risk: Dizziness: N Needs help standing or walking: N Fallen in the last 3 months: N Fall risk comments: 6. Patient on Blood Thinner: None 7. History of Hypertension: Y 8. Opioid Therapy greater than 6 weeks: Y Opiate Contract Signed: 06/04/16 9. Risk Assessment Tool Provided: LOW RISK 1 10. Functional Assessment Tool: 11. Recreational Drug Use: Never Drug Type: Tobacco Use: Never Smoker Tobacco Type: Amount or Packs/day: How Many Years: Alcohol Use: Yes Frequency: Special Occasions Quant:
--- NOTE | 2020-08-14 07:41 | HPC ---
[facility] [address] [place] [address] PAIN MANAGEMENT CONSULTATION Name: EDGARD BECERRA Room #: REG [facility]#: [id number] Admission: 08/13/20 Attend Phys: Joslyn Allen Discharge: Date of : 56 Report #: [id number] THIS REPORT FOR: cc: Vida Stratton MD, Paula V. MD Hocker, Amanda CNS ~ DATE OF SERVICE: 08/13/2020 CHIEF COMPLAINT: Back pain, hip and knee pain. HISTORY OF PRESENT ILLNESS: This is a 60-year-old female who returns to the pain clinic today for renewal of her medications for her various pain ailments. Today, she is reporting a pain score of 5/10. Pain is most specifically in her left hip, low back, shoulders and knees. She reports it is a dull aching, sharp pain at 5/5, worse with walking, standing and weather changes. Overall, she believes the medication is very beneficial as well as TENS units and occasional ice. She denies any constipation issues as a result of her medication and denies any daytime somnolence as a result of her medications. The patient does report that she was recently hospitalized overnight with chest pain. Her cardiac enzymes and troponin per her report were negative. She did have a stress test and echo, which was also negative. They believe that it was stress and anxiety that causes significant chest pain. She reports that they did increase her hypertension medications, which we have discussed with her several times. Now her blood pressure is regulated since she had that episode. ALLERGIES: COMPAZINE AND MORPHINE. CURRENT LIST OF MEDICATIONS: Norvasc 2.5 mg, hydrocodone 10/325, gabapentin, tizanidine, lisinopril, multivitamin, Dulera, Synthroid. PQRS: 1. She has osteoarthritic changes in her back, neck and lower extremities. Denies any rheumatoid arthritis. 2. Height is 5 feet 3 inches, weight is 200, BMI is 35. 3. Vital signs 132/71, pulse is 60, respirations 18, oxygen sat is 100. 4. Pain score is 5/10. 5. Denies dizziness, does not need help walking or standing, has not fallen in the last 3 months. 6. The patient is not on any blood thinners, but does take medicine for hypertension. 7. Opioid therapy is greater than 6 weeks; therefore, an opioid signed contract is on the chart. Risk assessment is low. Functional assessment is 45/70. 8. Recreational drug use, she denies. She is not a smoker and occasionally drinks alcohol. [address] [address] PAIN MANAGEMENT CONSULTATION Name: EDGARD BECERRA Gurvinder Room #: REG [facility] Bernardo#: [id number] Admission: 08/13/20 Attend Phys: Joslyn Allen Discharge: Date of : 56 Report #: [id number] According to the prescription monitoring system, she is filling all medicines appropriately. There is a hydrocodone fill for 12 tablets from her dentist that we did discuss. There is an opioid urine drug screen on the chart that is appropriate for her medications from last year. PHYSICAL EXAMINATION: GENERAL: This is alert and orientated, slightly obese 60-year-old female who is well-developed, well-nourished and well-hydrated, rating her pain score today at 5/10. HEENT: Normocephalic, atraumatic. Extraocular eye muscles are intact. She is wearing glasses and a mask. DENIES NICOLE NECK: Without adenopathy or JVD. MUSCULOSKELETAL: She is without significant kyphosis, lordosis or scoliosis. Pain radiates in her lower back that radiates lumbar region into her hips. She does have tenderness in her knees bilaterally. IMPRESSION: 1. Chronic hip pain. 2. Chronic low back pain. 3. Hypertension. 4. Cervical pain, status post cervical intervention. 5. Opioid medication management under terms of written agreement. We reviewed the fact that opiate medications are being used to provide analgesia adequate to support activities of daily living, not attempting to achieve a specific pain score on the 0-10 Visual Analog Scale. The current opiate medications are providing sufficient analgesia to allow the patient to participate in activities of daily living. The patient is not exhibiting any aberrant behavior suggestive of drug diversion. The patient is not having any adverse reactions to medications. The patient is not suffering from daytime somnolence or mental acuity changes. The patient is managing opiate-induced constipation with appropriate fnxq-xqi-fnevlef agents and dietary considerations. The patient was counseled on concern for caution with operating a motor vehicle while using opiate medications. PLAN: 1. We discussed treatment options with the patient today. We did discuss her blood pressure, which is much better controlled today following cardiac episode. She is currently on two antihypertensive medications now. The patient also denies headache since she has started taking her medications. 2. We did discuss the COVID vaccine. She has obtained the first vaccine. Unfortunately, she was in the hospital when they offered the second. We did discuss that she may have the second shot greater than 4 weeks and hopefully they will offer again soon at her workplace. 3. Dr. Parker collaborated care and sent electronically her hydrocodone [facility] [address] [place] [address] PAIN MANAGEMENT CONSULTATION Name: EDGARD BECERRA Room #: [facility]#: [id number] Admission: 08/13/20 Attend Phys: Joslyn Allen Discharge: Date of : 56 Report #: [id number] to fill today and again on 09/10/2020 and I sent her gabapentin 400 mg t.i.d., #90, with 5 refills. Time spent prior to seeing the patient, reviewing the chart and any pertinent medical documentation, time spent with the patient in consultation and physical exam 15 minutes. Time spent reviewing prescription monitoring program, information of side effects of medications, sending electronic prescriptions and documentation 15 minutes. Time spent with total time at least 30 minutes. <ELECTRONICALLY SIGNED> By: Joslyn Allen 08/14/20 0741 [id number] [id number] Joslyn Allen /nt
== END ==
LOC: PAIN 06:38
PROVIDERS: ATTEND Clinical Nurse Specialist Adult Health
DX: G89.29 Other chronic pain (principal); M25.569 Pain in unspecified knee; M25.559 Pain in unspecified hip; M54.5 Low back pain; I10 Essential (primary) hypertension; F11.20 Opioid dependence, uncomplicated; Z88.8 Allergy status to other drugs, medicaments and biological substances; Z79.899 Other long term (current) drug therapy

== ENCOUNTER → 2020-10-15 | Outpatient (CLI) | payer OTHER ==
[~2020-10-15] VITALS: Ht 157.5 cm; Wt 91.6 kg
[~2020-10-15] MED LIST changes: +NORVASC 2.5 MG2.5 MG PO
[2020-10-15 08:13] VITALS: BP 162/99
--- NOTE | 2020-10-15 08:17 | NUR ---
Pain Clinic Assessment: 1. History of Osteoarthritis: Right Lower Extremity NECK BACK History of Rheumatoid Arthritis: Not Applicable 2. Height: 5 ft. 2 in. 157.5 cm. Weight: 202.0 lb. oz. 91.627 kg. Patient's BMI: 36.9 3. Vital Signs: BP: 162/99 Pulse: 74 Resp: 16 Temp: 02 Sat: 97 ECG Mon: 4. Pain Intensity: 8 5. Fall Risk: Dizziness: N Needs help standing or walking: N Fallen in the last 3 months: N Fall risk comments: 6. Patient on Blood Thinner: None 7. History of Hypertension: Y 8. Opioid Therapy greater than 6 weeks: Y Opiate Contract Signed: 06/04/16 9. Risk Assessment Tool Provided: LOW RISK 1 10. Functional Assessment Tool: 11. Recreational Drug Use: Never Drug Type: Tobacco Use: Never Smoker Tobacco Type: Amount or Packs/day: How Many Years: Alcohol Use: Yes Frequency: Quant:
--- NOTE | 2020-10-15 11:40 | HPC ---
[facility] [address] [place] [address] PAIN MANAGEMENT CONSULTATION Name: EDGARD BECERRA [facility] [id number] Admission: 10/15/20 Attend Phys: Joslyn Allen Discharge: Date of : 56 Report #: [id number] THIS REPORT FOR: cc: Vida Stratton MD, Paula V. MD Hocker, Amanda CNS ~ DOC #: [id number] cc: Marie Parker MD DATE OF SERVICE: 10/15/2020 CHIEF COMPLAINT: Back pain, hip and knee pain, right hamstring. HISTORY OF PRESENT ILLNESS: This is a very pleasant 60-year-old and is well known to the pain clinic who returns today for renewal of her medications. Overall, she believes her medications are beneficial in helping with her low back, left hip and right knee pain. She today though is reporting a new pain that happened about 2 months ago. She was digging holes for a franck thao where she felt a pop pulling sensation in her right hamstring. She did not report this at her last visit because she felt that it would get better. It has now been 2 months and is still continuing to be quite painful with any bending, turning, sitting for very long. Today, she is reporting a pain score 8/10, which is quite high for her mostly related to this right hamstring area. Overall, she believes her medications do help her regular pain as well as TENS unit and ice. She denies significant constipation or daytime somnolence as a result of her medications. ALLERGIES: COMPAZINE AND MORPHINE. CURRENT LIST OF MEDICATIONS: Amlodipine 2.5 mg daily, gabapentin 400 mg t.i.d., hydrocodone 10/325 p.r.n., tizanidine, lisinopril, Advair, albuterol and Synthroid. PQRS: 1. She has arthritic changes in her back, neck and lower extremities. Denies any rheumatoid arthritis. 2. Height is 5 feet 2 inches, weight is 202. BMI is 36. 3. Vital signs; blood pressure 162/99, pulse is 74, respirations 16, oxygen sat is 97%. 4. Pain score is 8/10. 5. Denies dizziness does not need help walking or standing, has not fallen in the last 3 months. 6. The patient is not on any blood thinners, but does take medicine for hypertension. 7. Opiate therapy is greater than six weeks; therefore, an opioid signed contract is on the chart. Risk assessment is low[place] [address] PAIN MANAGEMENT CONSULTATION Name: EDGARD BECERRA [facility] [id number] Admission: 10/15/20 Attend Phys: Joslyn Allen Discharge: Date of : 56 Report #: [id number] 45/70. 8. Recreational drug use, she denies. She is not a smoker and occasionally drinks alcohol. According to the prescription monitoring system, the patient is due to fill her medications today filling them in a timely fashion. Her morphine milliequivalent is 40 MME per day. There is a drug screen on the chart that is appropriate for her medications. PHYSICAL EXAMINATION: GENERAL: This is alert and orientated, well-developed, well-nourished, slightly obese 60-year-old female who appears her stated age, rating her pain score today at 8/10. HEENT: Normocephalic and atraumatic. Extraocular eye muscles are intact. She is wearing glasses and a mask. NECK: Without adenopathy or JVD. MUSCULOSKELETAL: She is without significant scoliosis, kyphosis, or lordosis. Tenderness in her right hamstring radiates from her lower buttock to her knee. The patient has discomfort in her lower portion of her back that radiates into her legs bilaterally, greater on the left than the right following the L5-S1 dermatomal distribution. Pain is increased with flexion and extension. Knees have tenderness bilaterally with no edema noted. IMPRESSION: 1. Chronic hip pain. 2. Chronic low back pain following L5-S1 dermatomal distribution. 3. Right hamstring injury. 4. Hypertension. 5. Cervical radiculopathy. 6. Opioid medication management under terms of written opioid agreement. PLAN: 1. We discussed treatment options with the patient today. The patient finds her medications very beneficial in helping relieve a significant portion of her overall pain. She would like to continue on her hydrocodone 10/325 #120 will be sent electronically by Dr. Karel Parker to her pharmacy. 2. I did examine her right hamstring injury and did discuss this with Dr. Parker who is agreeable that she should try conservative measures such as physical therapy to see if this will help decrease some of her pain. We will write a prescription explaining to the patient that this is not for her low back or neck pain, which she has failed physical therapy was not beneficial in the past, this is for this specific hamstring injury. Tomasa name was given for placed to attend physical therapy. 3. We will also offer her a Medrol Dosepak to see if we can decrease inflammation in that area, this is sent electronically. 4. I will continue her on her tizanidine 4 mg b.i.d., #180 with [address] [place] [address] PAIN MANAGEMENT CONSULTATION Name: EDGARD BECERRA Room #: REG [facility]#: [id number] Admission: 10/15/20 Attend Phys: Joslyn Allen Discharge: Date of : 56 Report #: [id number] refill, this is a 3 month supply with refills. The patient does find this muscle relaxant effective in helping reduce her overall spasms that she experienced. Time spent in consultation reviewing pertinent imaging, reviewing recent studies and clinical notes and physician reports, physical examination and correlation of findings and medical documentation to determine possible treatment options 17 minutes. Time spent in preparation for appointment reviewing prescription monitoring system, reviewing previous records and treatment options 5 minutes. Time spent preparing and sending electronic prescriptions with collaborating physician, Dr. Karel Parker 5 minutes. Total time spent 27 minutes. KELLY Ulloa/GRADY <ELECTRONICALLY SIGNED> By: Joslyn Allen 10/15/20 1140 [id number] Joslyn Allen /nt
== END ==
LOC: PAIN 07:03
PROVIDERS: ATTEND Clinical Nurse Specialist Adult Health
DX: M54.12 Radiculopathy, cervical region (principal); M54.5 Low back pain; G89.29 Other chronic pain; I10 Essential (primary) hypertension; F11.20 Opioid dependence, uncomplicated; M25.561 Pain in right knee; Z88.8 Allergy status to other drugs, medicaments and biological substances; Z79.899 Other long term (current) drug therapy

== ENCOUNTER → 2020-12-12 | Outpatient (CLI) | payer OTHER ==
[~2020-12-12] VITALS: Ht 160 cm; Wt 89.7 kg
[~2020-12-12] MED LIST changes: +DULERA 200 MCG/13 GM INH
[2020-12-12 08:18] VITALS: BP 151/86
--- NOTE | 2020-12-12 08:24 | NUR ---
Pain Clinic Assessment: 1. History of Osteoarthritis: Right Lower Extremity NECK BACK History of Rheumatoid Arthritis: Not Applicable 2. Height: 5 ft. 3 in. 160.0 cm. Weight: 197.8 lb. oz. 89.722 kg. Patient's BMI: 35.0 3. Vital Signs: BP: 151/86 Pulse: 61 Resp: 16 Temp: 02 Sat: 99 ECG Mon: 4. Pain Intensity: 5 5. Fall Risk: Dizziness: N Needs help standing or walking: N Fallen in the last 3 months: N Fall risk comments: 6. Patient on Blood Thinner: None 7. History of Hypertension: Y 8. Opioid Therapy greater than 6 weeks: Y Opiate Contract Signed: 06/04/16 9. Risk Assessment Tool Provided: LOW RISK 1 10. Functional Assessment Tool: 11. Recreational Drug Use: Never Drug Type: Tobacco Use: Never Smoker Tobacco Type: Amount or Packs/day: How Many Years: Alcohol Use: Yes Frequency: Special Occasions Quant:
== END ==
LOC: PAIN 06:58
PROVIDERS: ATTEND Anesthesiology Pain Medicine
DX: G89.29 Other chronic pain (principal); M25.552 Pain in left hip; J45.909 Unspecified asthma, uncomplicated; K21.9 Gastro-esophageal reflux disease without esophagitis; M17.11 Unilateral primary osteoarthritis, right knee; G43.909 Migraine, unspecified, not intractable, without status migrainosus; I10 Essential (primary) hypertension; G25.81 Restless legs syndrome; L71.9 Rosacea, unspecified; G56.00 Carpal tunnel syndrome, unspecified upper limb; Z90.49 Acquired absence of other specified parts of digestive tract; Z98.890 Other specified postprocedural states; Z88.5 Allergy status to narcotic agent; Z88.8 Allergy status to other drugs, medicaments and biological substances; Z79.891 Long term (current) use of opiate analgesic; Z79.899 Other long term (current) drug therapy

== ENCOUNTER → 2021-02-04 | Outpatient (CLI) | payer OTHER ==
[~2021-02-04] VITALS: Ht 160 cm; Wt 90.0 kg
[2021-02-04 08:25] VITALS: BP 148/89
--- NOTE | 2021-02-04 08:38 | NUR ---
Pain Clinic Assessment: 1. History of Osteoarthritis: Right Lower Extremity NECK BACK History of Rheumatoid Arthritis: Not Applicable 2. Height: 5 ft. 3 in. 160.0 cm. Weight: 198.4 lb. oz. 89.994 kg. Patient's BMI: 35.2 3. Vital Signs: BP: 148/89 Pulse: 72 Resp: 16 Temp: 02 Sat: 100 ECG Mon: 4. Pain Intensity: 8 5. Fall Risk: Dizziness: N Needs help standing or walking: N Fallen in the last 3 months: Y Fall risk comments: 6. Patient on Blood Thinner: None 7. History of Hypertension: Y 8. Opioid Therapy greater than 6 weeks: Y Opiate Contract Signed: 06/04/16 9. Risk Assessment Tool Provided: 7-MODERATE RISK 10. Functional Assessment Tool: 11. Recreational Drug Use: Never Drug Type: Tobacco Use: Never Smoker Tobacco Type: Amount or Packs/day: How Many Years: Alcohol Use: Yes Frequency: Special Occasions Quant: 1 TO 2
== END ==
LOC: PAIN 06:49
PROVIDERS: ATTEND Anesthesiology Pain Medicine
DX: M25.551 Pain in right hip (principal); M25.552 Pain in left hip; G89.29 Other chronic pain; G43.909 Migraine, unspecified, not intractable, without status migrainosus; I10 Essential (primary) hypertension; G25.81 Restless legs syndrome; G56.00 Carpal tunnel syndrome, unspecified upper limb; M25.512 Pain in left shoulder; Z79.899 Other long term (current) drug therapy; Z79.891 Long term (current) use of opiate analgesic

== ENCOUNTER → 2021-04-03 | Outpatient (CLI) | payer OTHER ==
[~2021-04-03] VITALS: Ht 160 cm; Wt 92.5 kg
[2021-04-03 09:12] VITALS: BP 155/86
--- NOTE | 2021-04-03 09:23 | NUR ---
Pain Clinic Assessment: 1. History of Osteoarthritis: Right Lower Extremity NECK BACK History of Rheumatoid Arthritis: Not Applicable 2. Height: 5 ft. 3 in. 160.0 cm. Weight: 204.0 lb. oz. 92.534 kg. Patient's BMI: 36.1 3. Vital Signs: BP: 155/86 Pulse: 62 Resp: 16 Temp: 02 Sat: 100 ECG Mon: 4. Pain Intensity: 9 W/ACTIVITY 5. Fall Risk: Dizziness: N Needs help standing or walking: N Fallen in the last 3 months: N Fall risk comments: 6. Patient on Blood Thinner: None 7. History of Hypertension: Y 8. Opioid Therapy greater than 6 weeks: Y Opiate Contract Signed: 06/04/16 9. Risk Assessment Tool Provided: 7-MODERATE RISK 10. Functional Assessment Tool: 11. Recreational Drug Use: Never Drug Type: Tobacco Use: Never Smoker Tobacco Type: Amount or Packs/day: How Many Years: Alcohol Use: Yes Frequency: Quant:
== END ==
LOC: PAIN 06:42
PROVIDERS: ATTEND Anesthesiology Pain Medicine
DX: G89.29 Other chronic pain (principal); M25.559 Pain in unspecified hip; M54.59 Other low back pain; I10 Essential (primary) hypertension; G25.81 Restless legs syndrome; G56.00 Carpal tunnel syndrome, unspecified upper limb; M25.512 Pain in left shoulder; L71.9 Rosacea, unspecified; Z88.8 Allergy status to other drugs, medicaments and biological substances; Z79.899 Other long term (current) drug therapy

== ENCOUNTER → 2021-07-03 | Outpatient (CLI) | payer BC ==
[~2021-07-03] VITALS: Ht 160 cm; Wt 93.2 kg
[2021-07-03 08:42] VITALS: BP 130/65
--- NOTE | 2021-07-03 08:57 | NUR ---
Pain Clinic Assessment: 1. History of Osteoarthritis: Right Lower Extremity NECK BACK History of Rheumatoid Arthritis: Not Applicable 2. Height: 5 ft. 3 in. 160.0 cm. Weight: 205.4 lb. oz. 93.169 kg. Patient's BMI: 36.4 3. Vital Signs: BP: 130/65 Pulse: 56 Resp: 14 Temp: 02 Sat: 98 ECG Mon: 4. Pain Intensity: 3 5. Fall Risk: Dizziness: Y Needs help standing or walking: N Fallen in the last 3 months: N Fall risk comments: 6. Patient on Blood Thinner: None 7. History of Hypertension: Y 8. Opioid Therapy greater than 6 weeks: Y Opiate Contract Signed: 06/04/16 9. Risk Assessment Tool Provided: 7-MODERATE RISK 10. Functional Assessment Tool: 11. Recreational Drug Use: Never Drug Type: Tobacco Use: Never Smoker Tobacco Type: Amount or Packs/day: How Many Years: Alcohol Use: Yes Frequency: Quant:
== END ==
LOC: PAIN 07:37
PROVIDERS: ATTEND Clinical Nurse Specialist Adult Health
DX: G89.29 Other chronic pain (principal); M54.16 Radiculopathy, lumbar region; M79.669 Pain in unspecified lower leg; M25.559 Pain in unspecified hip; I10 Essential (primary) hypertension; G25.81 Restless legs syndrome; M19.90 Unspecified osteoarthritis, unspecified site; Z88.8 Allergy status to other drugs, medicaments and biological substances; Z79.899 Other long term (current) drug therapy